=== PATIENT | female | born 1975 | race Two or more races ===

== ENCOUNTER 2016-06-22 21:29 | Inpatient (IN) | payer MEDICAID ==
[~2016-06-22] VITALS: Ht 157.5 cm; Wt 70.0 kg
[2016-06-22 22:05] LABS: Basophils # (auto) 0 uL; Basophils % (auto) 0.2 % (0.0-2.0); Eosinophils # (auto) 0 uL; Eosinophils % (auto) 0.4 % (0.0-7.0); Hematocrit 34.5 % (36.0-46.0); Lymphocytes # (auto) 0.7 uL; Lymphocytes % (auto) 8.2 % (10.0-50.0); Mean Corpuscular Hemoglobin 29.2 pg (28.0-32.0); Mean Corpuscular Hgb Conc. 34.8 g/dL (32.0-36.0); Mean Corpuscular Volume 83.9 fL (80.0-100.0); Mean Platelet Volume 8.3 fL (7.4-10.4); Monocytes # (auto) 0.1 uL; Monocytes % (auto) 0.6 % (0.0-12.0); Neutrophils # (auto) 7.4 uL; Neutrophils % (auto) 90.6 % (37.0-80.0); Platelet Count (auto) 297 10^3/uL (140-450); Red Cell Distribution Width 11.7 % (11.6-16.0); Urine Bilirubin Negative (Negative); Urine Blood TRACE /uL (Negative); Urine Color Yellow (Yellow); Urine Nitrite Negative (Negative); Urine RBC 5 /hpf (0 - 4); Urine Squamous Epithelial Cell FEW /hpf (<5); Urine Urobilinogen Normal (Negative); Urine pH 6.5 (5.0-8.0); White Blood Cell 8.2 10^3/uL (4.4-10.8)
[2016-06-22] MEDS ORDERED: ACETAMINOPHEN 500 MG TAB PO ONE ×2 (22:08→22:15)
[2016-06-22 22:15] LABS: Urine Glucose 4+ mg/dL (Normal); Urine Ketone 2+ (Negative)
[2016-06-22 22:21] LABS: Albumin 2.5 g/dL (3.4-5.0); Anion Gap 15 (5-15); Aspartate Aminotransferase 71 U/L (15-37); BUN/Creatinine Ratio 13.2; Blood Urea Nitrogen 9 mg/dL (7-18); Calcium 7.8 mg/dL (8.5-10.1); Carbon Dioxide 20 mmol/L (21-32); Chloride 97 mmol/L (98-107); GFR African American 123 mL/min; GFR Non-African American 102 mL/min; Glucose 323 mg/dL (74-106); Magnesium 1.7 mg/dL (1.6-2.6); Potassium 3.1 mmol/L (3.5-5.1); Sodium 132 mmol/L (136-145)
[2016-06-22 22:26] LABS: Alkaline Phosphatase 338 U/L (45-117); Bilirubin, Total 0.9 mg/dL (0.2-1.0); Total Protein 7.5 g/dL (6.4-8.2)
[2016-06-22 22:59] LABS: Partial Thromboplastin Time 29.4 sec (22.64-33.71)
[2016-06-22 23:00] LABS: Prothrombin Time 12.6 sec (9.37-12.3)
[2016-06-22] MEDS ORDERED: SODIUM CHLORIDE 0.9% 1,000 ML IV ONE (23:00)
[2016-06-22 23:01] LABS: INR 1.22 (0.9-1.15)
[2016-06-22] MEDS ORDERED: InsuLIN REG 1unit/0.01ml Soln (100units/ml) IV ONE (23:30)
[2016-06-22] MEDS ORDERED: VANCOMYCIN 1GM/250ML D5W 250 ML IV ONE (23:30)
[2016-06-22] MEDS ORDERED: cefTRIAXone 1GM/50ML D5W 50 ML IV ONE (23:30)
[2016-06-22] MEDS ORDERED: POTASSIUM CHL 20 Meq TABLET PO ONE (23:30)
[2016-06-22] MEDS ORDERED: IOHEXOL 300 MG/ML 100ML BOTTLE IJ ONE (23:42)
[2016-06-23] MEDS ORDERED: DEXTROSE (50%) 50ML SYRG IV PRN (06:15)
[2016-06-23] MEDS ORDERED: SODIUM CHLORIDE 0.9% 1,000 ML IV ONE (06:15)
[2016-06-23] MEDS ORDERED: MORPHINE SULF INJ 2 MG/ML SYRINGE 1ML IV PRN (06:15)
[2016-06-23] MEDS ORDERED: NITROGLYCERIN 0.4 MG SL TAB SL PRN (06:15)
[2016-06-23] MEDS ORDERED: ACETAMINOPHEN 500 MG TAB PO PRN (06:15)
[2016-06-23] MEDS: LEVOFLOXACIN 500MG 100 ML IV SCH ×2 (06:37→10:00)
[2016-06-23 08:22] VITALS: BP 118/67
[2016-06-23 09:00] VITALS: BP 118/67
[2016-06-23] MEDS ORDERED: cefTRIAXone 1GM/50ML D5W 50 ML IV SCH (09:00)
[2016-06-23] MEDS: MORPHINE SULF INJ 2 MG/ML SYRINGE 1ML IV PRN ×3 (11:13→23:51)
[2016-06-23] MEDS: PANTOPRAZOLE SODIUM 40 MG/10 ML VIAL IV SCH (11:14)
[2016-06-23] MEDS: ONDANSETRON HCL 4 MG/2 ML VIAL IV PRN ×2 (11:25→17:35)
[2016-06-23 13:00] VITALS: BP 125/74
[2016-06-23] MEDS: ACCU-CHEK COMFORT CURVE STRIP VI SCH ×2 (13:40→18:54)
[2016-06-23] MEDS: InsuLIN REG 1unit/0.01ml Soln (100units/ml) SC SCH ×2 (13:41→18:54)
[2016-06-23] MEDS: SOD CHL 0.9%/ KCL 20MEQ 1,000 ML IV SCH (14:47)
[2016-06-23 17:00] VITALS: BP 128/67
[2016-06-23 20:00] VITALS: BP 125/66
[2016-06-23 22:00] VITALS: BP 125/66
[2016-06-23] MEDS: INSULIN DETEMIR(LEVEMIR) 1unit/0.01ml Soln (100units/ml) SC SCH (22:00)
[2016-06-24] MEDS: ACCU-CHEK COMFORT CURVE STRIP VI SCH ×5 (00:27→23:51)
[2016-06-24] MEDS: InsuLIN REG 1unit/0.01ml Soln (100units/ml) SC SCH ×4 (00:28→18:16)
[2016-06-24] MEDS: SOD CHL 0.9%/ KCL 20MEQ 1,000 ML IV SCH ×3 (00:28→20:51)
[2016-06-24 05:24] VITALS: BP 115/62
[2016-06-24 06:19] LABS: Basophils # (auto) 0 uL; Basophils % (auto) 0.2 % (0.0-2.0); Eosinophils # (auto) 0 uL; Eosinophils % (auto) 0.4 % (0.0-7.0); Hematocrit 34.4 % (36.0-46.0); Hemoglobin 11.8 g/dL (12.2-16.2); Lymphocytes # (auto) 1.3 uL; Lymphocytes % (auto) 12.5 % (10.0-50.0); Mean Corpuscular Hemoglobin 29.2 pg (28.0-32.0); Mean Corpuscular Hgb Conc. 34.4 g/dL (32.0-36.0); Mean Corpuscular Volume 84.8 fL (80.0-100.0); Mean Platelet Volume 8.5 fL (7.4-10.4); Monocytes # (auto) 0.7 uL; Neutrophils % (auto) 79.9 % (37.0-80.0); Platelet Count (auto) 269 10^3/uL (140-450); Red Cell Distribution Width 11.9 % (11.6-16.0); White Blood Cell 10.1 10^3/uL (4.4-10.8)
[2016-06-24] MEDS: INSULIN DETEMIR(LEVEMIR) 1unit/0.01ml Soln (100units/ml) SC SCH (06:28)
[2016-06-24 06:34] LABS: Albumin 2.2 g/dL (3.4-5.0); BUN/Creatinine Ratio 9.3; Calcium 7.8 mg/dL (8.5-10.1); Potassium 3.7 mmol/L (3.5-5.1)
[2016-06-24 06:37] LABS: Bilirubin, Total 0.7 mg/dL (0.2-1.0); Total Protein 6.7 g/dL (6.4-8.2)
[2016-06-24 08:00] VITALS: BP 126/74
[2016-06-24] MEDS ORDERED: MIDAZOLAM HCL 1MG/1ML-2 ML VIAL ONE (08:35)
[2016-06-24] MEDS ORDERED: fentaNYL CITRATE 100 MCG/2 ML VL ONE (08:35)
[2016-06-24] MEDS ORDERED: LIDOCAINE 2%HCL (LOCAL ANESTH.) INJ 20ML MDV ONE (08:48)
[2016-06-24 09:00] VITALS: BP 126/74
[2016-06-24] MEDS: PIPERACILLIN-TAZOB 3.375GM 100 ML IV SCH ×3 (10:37→20:51)
[2016-06-24] MEDS: MORPHINE SULF INJ 2 MG/ML SYRINGE 1ML IV PRN ×2 (10:37→16:20)
[2016-06-24] MEDS: PANTOPRAZOLE SODIUM 40 MG/10 ML VIAL IV SCH (10:37)
[2016-06-24 13:00] VITALS: BP 127/71
[2016-06-24 17:00] VITALS: BP 148/76
[2016-06-24] MEDS: HYDROcodone-ACET 5/325MG TAB PO PRN (18:55)
[2016-06-24 22:00] VITALS: BP 138/74
[2016-06-25] MEDS: INSULIN DETEMIR(LEVEMIR) 1unit/0.01ml Soln (100units/ml) SC SCH ×3 (00:10→22:00)
[2016-06-25] MEDS: InsuLIN REG 1unit/0.01ml Soln (100units/ml) SC SCH ×4 (00:11→18:06)
[2016-06-25] MEDS: PIPERACILLIN-TAZOB 3.375GM 100 ML IV SCH ×4 (03:35→21:58)
[2016-06-25 05:00] VITALS: BP 137/80
[2016-06-25] MEDS: ACCU-CHEK COMFORT CURVE STRIP VI SCH ×3 (06:14→18:14)
[2016-06-25] MEDS: SOD CHL 0.9%/ KCL 20MEQ 1,000 ML IV SCH (06:33)
[2016-06-25 09:00] VITALS: BP 126/77
[2016-06-25] MEDS: PANTOPRAZOLE SODIUM 40 MG/10 ML VIAL IV SCH (10:13)
[2016-06-25] MEDS: HYDROcodone-ACET 5/325MG TAB PO PRN ×2 (10:13→14:34)
[2016-06-25] MEDS ORDERED: FAMOTIDINE 20 MG TAB PO ONE (11:00)
[2016-06-25] MEDS ORDERED: ENOXAPARIN SOD 40 MG/0.4 ML SYRINGE SC ONE (11:00)
[2016-06-25 17:00] VITALS: BP 107/68
[2016-06-25 21:00] VITALS: BP 128/76
[2016-06-26] MEDS: InsuLIN REG 1unit/0.01ml Soln (100units/ml) SC SCH ×4 (00:11→18:20)
[2016-06-26] MEDS: ACCU-CHEK COMFORT CURVE STRIP VI SCH ×4 (00:12→18:22)
[2016-06-26] MEDS: PIPERACILLIN-TAZOB 3.375GM 100 ML IV SCH ×4 (03:24→21:50)
[2016-06-26 06:26] LABS: Basophils # (auto) 0 uL; Basophils % (auto) 0.3 % (0.0-2.0); Eosinophils # (auto) 0.1 uL; Eosinophils % (auto) 2.3 % (0.0-7.0); Hematocrit 34.9 % (36.0-46.0); Lymphocytes # (auto) 1.9 uL; Lymphocytes % (auto) 30.3 % (10.0-50.0); Mean Corpuscular Hgb Conc. 34.3 g/dL (32.0-36.0); Mean Corpuscular Volume 84.6 fL (80.0-100.0); Mean Platelet Volume 8.3 fL (7.4-10.4); Monocytes # (auto) 0.5 uL; Monocytes % (auto) 8.6 % (0.0-12.0); Neutrophils # (auto) 3.7 uL; Neutrophils % (auto) 58.5 % (37.0-80.0); Platelet Count (auto) 350 10^3/uL (140-450); White Blood Cell 6.3 10^3/uL (4.4-10.8)
[2016-06-26 06:39] LABS: BUN/Creatinine Ratio 6.8; Calcium 8.3 mg/dL (8.5-10.1); Potassium 3.3 mmol/L (3.5-5.1)
[2016-06-26] MEDS: INSULIN DETEMIR(LEVEMIR) 1unit/0.01ml Soln (100units/ml) SC SCH (06:39)
[2016-06-26] MEDS: HYDROcodone-ACET 5/325MG TAB PO PRN (08:53)
[2016-06-26 09:49] VITALS: BP 123/78
[2016-06-26] MEDS: FAMOTIDINE 20 MG TAB PO SCH (10:37)
[2016-06-26] MEDS: ENOXAPARIN SOD 100 MG/1 ML SYRINGE SC SCH (10:37)
[2016-06-26 12:55] VITALS: BP 134/77
[2016-06-26] MEDS ORDERED: POTASSIUM CHL 20 Meq TABLET PO ONE (15:15)
[2016-06-26 16:48] VITALS: BP 134/72
[2016-06-26 20:27] VITALS: BP 138/75
[2016-06-27] MEDS: InsuLIN REG 1unit/0.01ml Soln (100units/ml) SC SCH ×4 (00:03→18:32)
[2016-06-27] MEDS: INSULIN DETEMIR(LEVEMIR) 1unit/0.01ml Soln (100units/ml) SC SCH ×3 (00:06→22:00)
[2016-06-27] MEDS: ACCU-CHEK COMFORT CURVE STRIP VI SCH ×4 (00:06→18:00)
[2016-06-27] MEDS: PIPERACILLIN-TAZOB 3.375GM 100 ML IV SCH (03:00)
[2016-06-27 05:29] VITALS: BP 115/72
[2016-06-27 08:28] VITALS: BP 127/76
[2016-06-27] MEDS: LEVOFLOXACIN 500MG 100 ML IV SCH (09:20)
[2016-06-27] MEDS: FAMOTIDINE 20 MG TAB PO SCH (10:33)
[2016-06-27] MEDS: ENOXAPARIN SOD 100 MG/1 ML SYRINGE SC SCH (10:34)
[2016-06-27] MEDS: SOD CHL 0.9%/ KCL 20MEQ 1,000 ML IV SCH (11:15)
[2016-06-27 12:03] VITALS: BP 125/71
[2016-06-27 22:00] VITALS: BP 147/82
[2016-06-28] MEDS: InsuLIN REG 1unit/0.01ml Soln (100units/ml) SC SCH ×4 (00:47→18:00)
[2016-06-28] MEDS: ACCU-CHEK COMFORT CURVE STRIP VI SCH ×4 (00:47→18:00)
[2016-06-28] MEDS: SOD CHL 0.9%/ KCL 20MEQ 1,000 ML IV SCH ×2 (00:47→07:15)
[2016-06-28 05:00] VITALS: BP 137/78
[2016-06-28] MEDS: INSULIN DETEMIR(LEVEMIR) 1unit/0.01ml Soln (100units/ml) SC SCH ×2 (06:50→22:29)
[2016-06-28 07:40] LABS: BUN/Creatinine Ratio 9.5; Calcium 8.3 mg/dL (8.5-10.1); Potassium 3.7 mmol/L (3.5-5.1)
[2016-06-28] MEDS ORDERED: IOHEXOL 300 MG/ML 100ML BOTTLE IJ ONE (08:12)
[2016-06-28 09:00] VITALS: BP 119/73
[2016-06-28] MEDS: LEVOFLOXACIN 500MG 100 ML IV SCH (10:42)
[2016-06-28] MEDS: ENOXAPARIN SOD 100 MG/1 ML SYRINGE SC SCH (10:43)
[2016-06-28] MEDS: FAMOTIDINE 20 MG TAB PO SCH (10:43)
[2016-06-28] MEDS ORDERED: SODIUM CHLORIDE 0.9% 1,000 ML IV ONE (12:30)
[2016-06-28 12:55] VITALS: BP 136/78
[2016-06-28 17:02] VITALS: BP 139/77
[2016-06-28 20:00] VITALS: BP 130/77
[2016-06-28 22:00] VITALS: BP 130/77
[2016-06-29 05:00] VITALS: BP 136/74
[2016-06-29] MEDS: ACCU-CHEK COMFORT CURVE STRIP VI SCH ×5 (06:00→23:12)
[2016-06-29] MEDS: InsuLIN REG 1unit/0.01ml Soln (100units/ml) SC SCH ×5 (06:00→23:11)
[2016-06-29] MEDS: INSULIN DETEMIR(LEVEMIR) 1unit/0.01ml Soln (100units/ml) SC SCH (07:00)
[2016-06-29 09:00] VITALS: BP 123/68
[2016-06-29] MEDS: ENOXAPARIN SOD 100 MG/1 ML SYRINGE SC SCH (09:57)
[2016-06-29] MEDS: FAMOTIDINE 20 MG TAB PO SCH (09:57)
[2016-06-29] MEDS: LEVOFLOXACIN 500MG 100 ML IV SCH (09:57)
[2016-06-29 12:05] VITALS: BP 141/73
[2016-06-29] MEDS ORDERED: LEVO-28 PO (12:40)
[2016-06-29] MEDS ORDERED: METF-312 PO (12:40)
[2016-06-29 17:11] VITALS: BP 104/57
[2016-06-29 21:48] VITALS: BP 122/72
[2016-06-29] MEDS ORDERED: INSULIN DETEMIR(LEVEMIR) 1unit/0.01ml Soln (100units/ml) SC SCH (22:00)
[2016-06-30 05:00] VITALS: BP 114/69
[2016-06-30] MEDS: ACCU-CHEK COMFORT CURVE STRIP VI SCH ×2 (06:07→12:11)
[2016-06-30] MEDS: InsuLIN REG 1unit/0.01ml Soln (100units/ml) SC SCH ×2 (06:09→12:11)
[2016-06-30 08:00] VITALS: BP 116/68
[2016-06-30] MEDS: LEVOFLOXACIN 500MG 100 ML IV SCH (10:09)
[2016-06-30] MEDS: ENOXAPARIN SOD 100 MG/1 ML SYRINGE SC SCH (10:09)
[2016-06-30] MEDS: FAMOTIDINE 20 MG TAB PO SCH (10:09)
[2016-06-30 12:00] VITALS: BP 133/78
== END 2016-06-30 16:16 | disposition home or self-care (01) | DRG 720 ==
LOC: ER 21:32 → OVERFLOW 21:33 → EAST 06-23 08:20
PROVIDERS: ADMIT Family Medicine; ATTEND Internal Medicine
PROC: 0T913ZX Drainage of Left Kidney, Percutaneous Approach, Diagnostic (ICD-10-PCS; principal; 2016-06-24)
PROC: 0F9230Z Drainage of Left Lobe Liver with Drainage Device, Percutaneous Approach (ICD-10-PCS; 2016-06-24)
DX: A41.9 Sepsis, unspecified organism (principal); E43 Unspecified severe protein-calorie malnutrition; N15.1 Renal and perinephric abscess; J90 Pleural effusion, not elsewhere classified; E11.21 Type 2 diabetes mellitus with diabetic nephropathy; N39.0 Urinary tract infection, site not specified; R16.1 Splenomegaly, not elsewhere classified; J98.11 Atelectasis; E11.65 Type 2 diabetes mellitus with hyperglycemia; N10 Acute pyelonephritis; B96.1 Klebsiella pneumoniae [K. pneumoniae] as the cause of diseases classified elsewhere; E87.6 Hypokalemia; Z79.4 Long term (current) use of insulin; Z68.28 Body mass index [BMI] 28.0-28.9, adult; Z82.3 Family history of stroke
CPT/HCPCS: 36415; 71010; 74150; 74176; 74177; 75989; 80048; 80053; 81001; 82962; 83036; 83605; 83690; 83735; 84484; 84702; 85025; 85610; 85730; 87040; 87070; 87077; 87086; 87088; 87186; 87205; 93005; 96365; 96366; 96367; 96375; C1729; C9113; J0696; J1815; J1956; J2250; J2405; J2543

== ENCOUNTER 2019-12-29 10:01 | Emergency (ER) | payer SELFPAY ==
[~2019-12-29] VITALS: Ht 157.5 cm; Wt 86.2 kg
[~2019-12-29 10:01] MED LIST: LEVO-28 PO; METF-370 PO
[2019-12-29] MEDS ORDERED: cloNIDine HCL 0.1 MG TAB PO ONE (10:30)
[2019-12-29] MEDS ORDERED: LABETALOL HCL 5 MG/ML 4ML SYRINGE IV ONE (11:15)
[2019-12-29 11:51] LABS: Alanine Aminotransferase 26 U/L (13-56); Albumin 3.1 g/dL (3.4-5.0); Anion Gap 6 (5-15); Blood Urea Nitrogen 11 mg/dL (7-18); Calcium 8.2 mg/dL (8.5-10.1); Carbon Dioxide 23 mmol/L (21-32); Chloride 106 mmol/L (98-107); Glucose 230 mg/dL (74-106); Magnesium 2.2 mg/dL (1.6-2.6); Sodium 135 mmol/L (136-145)
[2019-12-29 11:53] LABS: Basophils # (auto) 0 10 ^3/uL (0-0.2); Basophils % (auto) 0.7 % (0.0-2.0); Eosinophils # (auto) 0 10 ^3/uL (0-0.8); Eosinophils % (auto) 0.6 % (0.0-7.0); Hematocrit 39.8 % (36.0-46.0); Hemoglobin 13.9 g/dL (12.2-16.2); Lymphocytes # (auto) 2.3 10 ^3/uL (0.4-5.4); Lymphocytes % (auto) 33.6 % (10.0-50.0); Mean Corpuscular Hemoglobin 30.9 pg (28.0-32.0); Mean Corpuscular Hgb Conc. 34.9 g/dL (32.0-36.0); Mean Corpuscular Volume 88.7 fL (80.0-100.0); Monocytes # (auto) 0.4 10 ^3/uL (0-1.3); Neutrophils % (auto) 59.1 % (37.0-80.0); Nucleated Red Blood Cells % 0.1 %; Platelet Count (auto) 239 10^3/uL (140-450); Red Blood Cells 4.48 10^6/uL (4.0-5.20); Red Cell Distribution Width 12.5 % (11.8-14.3); White Blood Cell 6.7 10^3/uL (4.4-10.8)
[2019-12-29 11:56] LABS: Alkaline Phosphatase 99 U/L (45-117); Aspartate Aminotransferase 18 U/L (15-37); Bilirubin, Total 0.4 mg/dL (0.2-1.0); GFR African American 146 mL/min; GFR Non-African American 121 mL/min; Total Protein 7.1 g/dL (6.4-8.2)
[2019-12-29 13:44] LABS: Urine Bacteria FEW /hpf (None Seen); Urine Blood TRACE /uL (Negative); Urine Mucus FEW (None Seen); Urine Specific Gravity 1.028 (1.001-1.035); Urine WBC 17 /hpf (0 - 5)
[2019-12-29 16:20] VITALS: BP 142/86
== END 2019-12-29 16:20 | disposition home or self-care (01) ==
LOC: ER 10:01
DX: I10 Essential (primary) hypertension (principal); E46 Unspecified protein-calorie malnutrition; E11.9 Type 2 diabetes mellitus without complications; Z79.84 Long term (current) use of oral hypoglycemic drugs
CPT/HCPCS: 36415; 70450; 71046; 80053; 81001; 83735; 84484; 84702; 85025; 93005; 96374; 99285; J3490

== ENCOUNTER 2023-08-16 10:04 | Inpatient (IN) | payer MEDICAID ==
[~2023-08-16] VITALS: Ht 152.4 cm; Wt 78.3 kg
[~2023-08-16 10:04] MED LIST changes: -LEVO-28 PO; +LEVO500T91 PO
[2023-08-16 10:48] LABS: Basophils # (auto) 0 10 ^3/uL (0-0.2); Basophils % (auto) 0.5 % (0.0-2.0); Eosinophils # (auto) 0.1 10 ^3/uL (0-0.8); Eosinophils % (auto) 1.3 % (0.0-7.0); Hematocrit 40.3 % (36.0-46.0); Hemoglobin 14.1 g/dL (12.2-16.2); Lymphocytes % (auto) 24.8 % (10.0-50.0); Mean Corpuscular Hgb Conc. 34.9 g/dL (32.0-36.0); Monocytes # (auto) 0.5 10 ^3/uL (0-1.3); Monocytes % (auto) 5.7 % (0.0-12.0); Neutrophils # (auto) 5.4 10 ^3/uL (1.6-8.6); Neutrophils % (auto) 67.7 % (37.0-80.0); Red Blood Cells 4.69 10^6/uL (4.0-5.20); Red Cell Distribution Width 12.9 % (11.8-14.3)
[2023-08-16] MEDS: cloNIDine HCL 0.1 MG TAB PO ONE (11:04)
[2023-08-16 11:08] LABS: Alkaline Phosphatase 114 U/L (46-116); Anion Gap 5 (5-15); Aspartate Aminotransferase 12 U/L (13-40); BUN/Creatinine Ratio 9.9 (10.0-20.0); Bilirubin, Total 0.5 mg/dL (0.2-1.0); Blood Urea Nitrogen 11 mg/dL (9-23); Carbon Dioxide 24 mmol/L (20-30); Chloride 101 mmol/L (98-107); Potassium 3.9 mmol/L (3.5-5.1); Sodium 130 mmol/L (136-145); Total Protein 7.2 g/dL (5.7-8.2)
[2023-08-16] MEDS: ONDANSETRON HCL 4 MG/2 ML VIAL IV ONE (11:26)
[2023-08-16] MEDS: MORPHINE SULFATE 4 MG/ML SYR/VIAL IV ONE (11:27)
[2023-08-16 11:56] LABS: Alanine Aminotransferase < 9 U/L (7-40)
[2023-08-16 11:58] LABS: Glucose 450 mg/dL (74-106)
[2023-08-16] MEDS: hydrALAZINE HCL 20 MG/ML VL IV ONE (13:01)
[2023-08-16] MEDS: SODIUM CHLORIDE 0.9% 1,000 ML IV ONE (13:01)
[2023-08-16] MEDS ORDERED: ONDANSETRON HCL 4 MG/2 ML VIAL IV PRN (17:15)
[2023-08-16] MEDS ORDERED: MORPHINE SULFATE INJ 2 MG/ml SYRG IV PRN (17:15)
[2023-08-16] MEDS ORDERED: DEXTROSE (50%) 50ML SYRG IV PRN (17:15)
[2023-08-16] MEDS ORDERED: hydrALAZINE HCL 20 MG/ML VL IV PRN (17:15)
[2023-08-16] MEDS ORDERED: DOCUSATE SOD 100 MG CAP PO PRN (17:15)
[2023-08-16] MEDS: SODIUM CHLORIDE 0.9% 1,000 ML IV SCH (17:25)
[2023-08-16] MEDS: ACCU-CHEK COMFORT CURVE STRIP VI SCH (22:57)
[2023-08-16] MEDS: InsuLIN REG 1unit/0.01ml Soln (100units/ml) SC SCH (23:04)
[2023-08-17 04:05] LABS: Basophils # (auto) 0.1 10 ^3/uL (0-0.2); Basophils % (auto) 0.7 % (0.0-2.0); Eosinophils # (auto) 0.1 10 ^3/uL (0-0.8); Eosinophils % (auto) 1.4 % (0.0-7.0); Hematocrit 38.8 % (36.0-46.0); Hemoglobin 13.4 g/dL (12.2-16.2); Lymphocytes # (auto) 2.2 10 ^3/uL (0.4-5.4); Lymphocytes % (auto) 25.9 % (10.0-50.0); Mean Corpuscular Hemoglobin 29.9 pg (28.0-32.0); Mean Corpuscular Hgb Conc. 34.5 g/dL (32.0-36.0); Mean Corpuscular Volume 86.7 fL (80.0-100.0); Monocytes # (auto) 0.5 10 ^3/uL (0-1.3); Monocytes % (auto) 5.5 % (0.0-12.0); Neutrophils # (auto) 5.7 10 ^3/uL (1.6-8.6); Neutrophils % (auto) 66.5 % (37.0-80.0); Red Blood Cells 4.48 10^6/uL (4.0-5.20); Red Cell Distribution Width 13.2 % (11.8-14.3); White Blood Cell 8.5 10^3/uL (4.4-10.8)
[2023-08-17 04:23] LABS: Alanine Aminotransferase 13 U/L (7-40); Albumin 3.5 g/dL (3.2-4.8); Alkaline Phosphatase 82 U/L (46-116); Anion Gap 8 (5-15); Aspartate Aminotransferase 13 U/L (13-40); BUN/Creatinine Ratio 16.2 (10.0-20.0); Blood Urea Nitrogen 19 mg/dL (9-23); Calcium 8.5 mg/dL (8.7-10.4); Carbon Dioxide 20 mmol/L (20-30); Chloride 107 mmol/L (98-107); Glucose 249 mg/dL (74-106); Potassium 3.9 mmol/L (3.5-5.1)
[2023-08-17 04:24] LABS: Bilirubin, Total 0.4 mg/dL (0.2-1.0)
[2023-08-17 04:35] LABS: Sodium 135 mmol/L (136-145)
[2023-08-17 04:40] VITALS: PULSE 89; RESP 16; O2SAT 98
[2023-08-17] MEDS: InsuLIN REG 1unit/0.01ml Soln (100units/ml) SC SCH (06:33)
[2023-08-17 07:36] VITALS: BP 152/77; TEMP 98.3
[2023-08-17 07:39] VITALS: PULSE 95; RESP 16; O2SAT 98
== END 2023-08-17 11:04 | disposition left against medical advice (07) | DRG 420 ==
LOC: ER 10:04 → OVERFLOW 17:08
PROVIDERS: ADMIT Nurse Practitioner Family; ATTEND Internal Medicine Pulmonary Disease
DX: E11.65 Type 2 diabetes mellitus with hyperglycemia (principal); N17.9 Acute kidney failure, unspecified; Z53.29 Procedure and treatment not carried out because of patient's decision for other reasons; E87.1 Hypo-osmolality and hyponatremia; I10 Essential (primary) hypertension; H54.62 Unqualified visual loss, left eye, normal vision right eye
CPT/HCPCS: 36415; 70450; 71045; 80053; 82010; 82962; 83036; 84484; 85025; 93005; 96361; 96374; 96375; G0378; J1815; J2405

== ENCOUNTER 2025-02-24 10:12 | Inpatient (IN) | payer MEDICAID ==
[~2025-02-24] VITALS: Ht 154.9 cm; Wt 74.1 kg
--- NOTE | 2025-02-24 10:24 | ED.PDOC ---
History of Present Illness HPI Comments 49-year-old female who presents to the ED with a chief complaint of facial swelling onset 3 days. Patient states she began experiencing right-sided facial swelling 3 days ago, woke up this morning and realized swelling had worsened, has right-sided facial drooping. She has also been experiencing decreased h earing from bilateral ears. For the past 6 months, has been experiencing wound to LT heel, was seen by PCP and advised to come to ED. Denies fall, head injury, nausea, vomiting, diarrhea, chest pain, shortness of breath, dizziness, blurred vision, dysuria, fever, chills. No other symptoms or modifying factors present at this time. Chief Complaint: Face pain Time Seen by MD: 10:20 Primary Care Provider: MOJGAN Allergies: Coded Allergies: NO KNOWN ALLERGIES (Unverified , 06/22/16) Home Meds Active Scripts Metformin Hydrochloride (Metformin Hcl) 500 Mg Tab, 1 TAB PO BID, #60 TAB 0 Refills Prov:RACHAEL ADAMS MD 06/29/16 Levofloxacin Hemihydrate (LEVOFLOXACIN) 500 Mg Tab, 1 TAB PO DAILY, #7 TAB Prov:RACHAEL ADAMS MD 06/29/16 Past Medical History PAST MEDICAL HISTORY: DM, HTN Surgical History: Denies all surgeries GRANT MANAGER History: No Pertinent GRANT MANAGER History Family History Family History: Unobtainable Social History Smoker: Non-Smoker Alcohol: Denies ETOH Use Drugs: Denies Drug Use Lives In: Home Physical Exam General Appearance: Normal HEENT: Other (RT facial swelling) Neck: Full Range of Motion, Non-Tender, Normal, Normal Inspection Respiratory: Chest Non-Tender, Lungs Clear, No Accessory Muscle Use, No Respiratory Distress, Normal Breath Sounds Cardiovascular: No Edema, No JVD, No Murmur, No Gallop, Normal Peripheral Pulses, Regular Rate/Rhythm Breast Exam: Deferred Gastrointestinal: No Organomegaly, Non Tender, No Pulsatile Mass, Normal Bowel Sounds, Soft Genitalia: Deferred Pelvic: Deferred Rectal: Deferred Extremities: No calf tenderness, Normal capillary refill, Normal inspection, Normal range of motion, Non-tender, No pedal edema Musculoskeletal : Apperance: Normal Neurologic: Other Cerebellar Function: Normal Reflexes: Normal Skin: Dry, Wounds (LT foot) Lymphatic: No Adenopathy Was a procedure done? Was a procedure done?: No Differential Dx Considerations may include: ACS, CVA, viral syndrome, electrolyte abnormality, hypertensive urgency X-Ray, Labs, Meds, VS Vital Signs Date Time Temp Pulse Resp B/P (MAP) Pulse Ox O2 Delivery O2 Flow Rate FiO2 02/24/25 15:30 98.5 102 15 172/73 (106) 97 98.5 02/24/25 14:56 195/65 02/24/25 10:19 98.3 110 16 232/115 100 98.3 02/24/25 10:18 109 Lab Test 02/24/25 13:58 02/24/25 11:45 02/24/25 11:01 Range/Units Troponin I High Sensitivity 7 5 6 </=34 ng/L White Blood Count 8.8 4.4-10.8 10^3/uL Red Blood Count 4.47 4.0-5.20 10^6/uL Hemoglobin 13.3 12.2-16.2 g/dL Hematocrit 38.3 36.0-46.0 % Mean Corpuscular Volume 85.7 80.0-100.0 fL Mean Corpuscular Hemoglobin 29.9 28.0-32.0 pg Mean Corpuscular Hemoglobin Concent 34.8 32.0-36.0 g/dL Red Cell Distribution Width 12.5 11.8-14.3 % Platelet Count 373 140-450 10^3/uL Mean Platelet Volume 8.5 6.9-10.8 fL Neutrophils (%) (Auto) 76.5 37.0-80.0 % Lymphocytes (%) (Auto) 17.5 10.0-50.0 % Monocytes (%) (Auto) 4.9 0.0-12.0 % Eosinophils (%) (Auto) 0.6 0.0-7.0 % Basophils (%) (Auto) 0.5 0.0-2.0 % Neutrophils # (Auto) 6.7 1.6-8.6 10 ^3/uL Lymphocytes # (Auto) 1.5 0.4-5.4 10 ^3/uL Monocytes # (Auto) 0.4 0-1.3 10 ^3/uL Eosinophils # (Auto) 0.1 0-0.8 10 ^3/uL Basophils # (Auto) 0 0-0.2 10 ^3/uL Nucleated Red Blood Cells 0.0 % Sodium Level 135 L 136-145 mmol/L Potassium Level 3.9 3.5-5.1 mmol/L Chloride Level 104 98-107 mmol/L Carbon Dioxide Level 22 20-31 mmol/L Anion Gap 9 5-15 Blood Urea Nitrogen 21 9-23 mg/dL Creatinine 1.71 H 0.550-1.02 mg/dL Glomerular Filtration Rate Calc 37 >90 mL/min BUN/Creatinine Ratio 12.3 10.0-20.0 Serum Glucose 278 H 74-106 mg/dL Calcium Level 8.6 L 8.7-10.4 mg/dL Current Medications Medications (Trade) Dose Ordered Sig/Juan Route Start Time Stop Time Status Last Admin Hydralazine HCl (Apresoline Tablet) 20 mg ONCE ONCE PO 02/24/25 14:15 02/24/25 14:16 DC 02/24/25 14:56 [place] [id number] Ph: [phone] DIAGNOSTIC IMAGING Diagnostic Imaging Report : [id number] Signed PATIENT: ISAIAH AMBRIZCT: [id number] UNIT: [id number] : 1975 LOC: ER ROOM / BED: / AGE / SEX: 49 / F ADM STATUS: REG ER SERVICE 1039 ORDERING PHYSICIAN: SARINA HAYES MD PROCEDURE(s): CXRP - CHEST PORTABLE REASON: weakness ORDER NUMBER(s): [id number], ACCESSION NUMBER(s): [id number] CHEST RADIOGRAPH Indication: weakness Technique: Single frontal view of the chest was obtained Comparison: XY CHEST XRAY 1 VIEW on DOS: 08/16/23 FINDINGS: Lines and Tubes: None Lungs: No focal consolidation. Pleura: No effusion. No pneumothorax. Cardiomediastinal contours: Unremarkable Bones: No acute osseous abnormality. IMPRESSION: 1. No acute cardiopulmonary disease. ATED BY: BESSIE COLON Jr., DO DICTATED DATE/TIME: 02/24/251112 SIGNED BY: BESSIE COLON Jr., DO SIGNED DATE/TIME: 02/24/251112 CC: Time of 1ST Reevaluation: 10:50 Reevaluation 1ST: Unchanged Patient Education/Counseling: Diagnosis, Treatment, Need For Follow Up Family Education/Counseling: Diagnosis, Treatment, Need For Follow Up SEPSIS Sepsis Screen Physician Orders Electrocardigram (02/24/25 10:39) Urinalysis (02/24/25 10:39) Chest Portable (02/24/25 10:39) Head Without Contrast (02/24/25 14:23) Vital Signs Date Time Temp Pulse Resp B/P (MAP) Pulse Ox O2 Delivery O2 Flow Rate FiO2 02/24/25 15:30 98.5 102 15 172/73 (106) 97 98.5 02/24/25 14:56 195/65 02/24/25 10:19 98.3 110 16 232/115 100 98.3 02/24/25 10:18 109 Laboratory Tests Test 02/24/25 11:01 White Blood Count 8.8 10^3/uL (4.4-10.8) Medications Medications Dose Ordered Sig/Juan Route Start Time Stop Time Status Last Admin Dose Admin Hydralazine HCl 20 mg ONCE ONCE PO 02/24/25 14:15 02/24/25 14:16 DC 02/24/25 14:56 Departure 1 Departure Time of Disposition: 16:17 (Patient presented with hypertension and symptoms concerning for hypertensive emergency. Patient is receiving iv blood pressure medications requiring intensive monitoring. Data: 1. I ordered and reviewed the result of at least 3 labs including a CBC, BMP, and Urinalysis. 2. I independently interpreted the following tests: CT Brain: Which appears benign. EKG which is Normal Sinus RhythmRisk:This patient has a high risk of morbidity due to further diagnostic testing or treatment and may suffer from an acute cardiac disorder. Workup reveals hypertensive emergency and patient should be admitted for further workup. and possible expert consultation. ) Impression: Primary Impression: Hypertensive urgency Additional Impression: Right sided facial pain Disposition: ADMITTED INPATIENT Admit to: Tele Condition: Guarded Discharged With: Self Critical Care Note Critical Care Time?: Yes Critical care comment: Hypertensive urgency Authorized and Performed by: Sarina Hayes MD Total critical care time: Approximately 39 minutes Due to a high probability of clinically significant, life threatening deterioration, the patient required my highest level of preparedness to intervene emergently and I personally spent this critical care time directly and personally managing the patient. This critical care time included obtaining a history; examining the patient; pulse oximetry; ordering and review of studies; arranging urgent treatment with development of a management plan; evaluation of patient's response to treatment; frequent reassessment; and, discussions with other providers. This critical care time was performed to assess and manage the high probability of imminent, life-threatening deterioration that could result in multi-organ failure. It was exclusive of separately billable procedures and treating other patients and teaching time. Please see my other sections and the rest of the note for further information on patient assessment and treatment. Stability Stability form required: No Heart Score Heart Score: Heart Score Response (Comments) Value History N/A 0 EKG N/A 0 Age N/A 0 Risk Factors N/A 0 Troponin N/A 0 Total 0 I personally scribed for SARINA HAYES MD ([email or web address]) on 02/24/25 at 10:24. Electronically submitted by Lashawn Patel ([email or web address]). I personally scribed for SARINA HAYES MD ([email or web address]) on 02/24/25 at 11:31. Electronically submitted by Lashawn Patel ([email or web address]). SARINA HAYES MD Feb 24, 2025 10:24
--- NOTE | 2025-02-24 10:40 | ECG ---
[facility] Test Date: 2025-02-24 Test Time: 10:18:15 Pat Name: FABBY AMBRIZ Department: Room: Gender: F Patient Care Coordinator: ESPERANZA : 1975 Requested By: SARINA HAYES Order Number: [id number] Reading MD: Kike Delvalle Measurements Intervals [place] Rate: 109 P: 64 MO: 128 QRS: 88 QRSD: 93 T: 21 QT: 345 QTc: 465 Interpretive Statements Sinus tachycardia Borderline ST depression, diffuse leads Baseline wander in lead(s) II,III,aVR,aVF,V3,V4,V5,V6 Electronically Signed On 02-24-2025 11:02:26 PST by Kike Delvalle Please click the below link to view image of tracing.
--- NOTE | 2025-02-24 11:15 | DVH ---
CHEST RADIOGRAPH Indication: weakness Technique: Single frontal view of the chest was obtained Comparison: XY CHEST XRAY 1 VIEW on DOS: 08/16/23 FINDINGS: Lines and Tubes: None Lungs: No focal consolidation. Pleura: No effusion. No pneumothorax. Cardiomediastinal contours: Unremarkable Bones: No acute osseous abnormality. IMPRESSION: 1. No acute cardiopulmonary disease.
[2025-02-24 11:34] LABS: Hematocrit 38.3 % (36.0-46.0); Hemoglobin 13.3 g/dL (12.2-16.2); Mean Corpuscular Hemoglobin 29.9 pg (28.0-32.0); Mean Corpuscular Volume 85.7 fL (80.0-100.0); Nucleated Red Blood Cells % 0.0 %
[2025-02-24 11:40] LABS: Chloride 104 mmol/L (98-107); Potassium 3.9 mmol/L (3.5-5.1)
[2025-02-24 11:41] LABS: Anion Gap 9 (5-15); Carbon Dioxide 22 mmol/L (20-31)
[2025-02-24 11:47] LABS: BUN/Creatinine Ratio 12.3 (10.0-20.0); Blood Urea Nitrogen 21 mg/dL (9-23); Calcium 8.6 mg/dL (8.7-10.4); Glucose 278 mg/dL (74-106); Sodium 135 mmol/L (136-145)
--- NOTE | 2025-02-24 16:10 | DVH ---
CLINICAL HISTORY: facial pain, weakness TECHNIQUE: Helical scanning was performed of the head from the skull base to the vertex. Multiplanar reconstructions were performed. This exam was performed according to our departmental dose optimization program. Up-to-date CT equipment and radiation dose reduction techniques are utilized as appropriate. CTDI 54 DLP 966 COMPARISON: CT HEAD WITHOUT CONTRAST on DOS: 08/16/23, HEAD WITHOUT CONTRAST on DOS: 12/29/19 FINDINGS: There is no evidence for acute intracranial hemorrhage, acute ischemic changes, mass, mass effect, or extra-axial fluid collection. There is no hydrocephalus or midline shift. There is no effacement of the cerebral sulci and basal subarachnoid cisterns. The guerrero-white matter differentiation is well maintained. The imaged paranasal sinuses are clear. 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 ( IMPRESSION: NO ACUTE INTRACRANIAL ABNORMALITY SEEN.
[2025-02-24] MEDS ORDERED: DEXTROSE (50%) 50ML SYRG IV PRN (20:45)
[2025-02-24] MEDS ORDERED: VANCOMYCIN PER PHARMACY 0 MG IV SCH (20:45)
[2025-02-24] MEDS ORDERED: ONDANSETRON HCL 4 MG/2 ML VIAL IV PRN (20:45)
--- NOTE | 2025-02-24 21:48 | DVH ---
CLINICAL HISTORY: rule out osteomyelitis TECHNIQUE: CT of the left foot was performed without intravenous contrast. This exam was performed according to our departmental dose optimization program. Up-to-date CT equipment and radiation dose reduction techniques are utilized as appropriate. CTDI 8 mGy DLP 278 mGy.cm COMPARISON: None FINDINGS: There is diffuse soft tissue swelling. No definite discrete fluid collection is seen. No acute fracture or dislocation is evident. There are no cortical erosions or periosteal reaction. There are no significant degenerative changes IMPRESSION: Diffuse soft tissue swelling. No CT evidence for acute osteomyelitis.
[2025-02-24 21:53] LABS: Albumin 3.6 g/dL (3.2-4.8); Bilirubin, Total 0.4 mg/dL (0.2-1.0); Magnesium 2.1 mg/dL (1.6-2.6); Total Protein 7.0 g/dL (5.7-8.2)
[2025-02-24 21:55] LABS: Alanine Aminotransferase < 9 U/L (7-40); Alkaline Phosphatase 125 U/L (46-116); Bilirubin, Direct < 0.1 mg/dL (<0.3)
[2025-02-24] MEDS: ACCU-CHEK COMFORT CURVE STRIP VI SCH (22:00)
[2025-02-24] MEDS: diphenhydrAMINE HCL 50 MG/1 ML VL IV ONE (22:04)
[2025-02-24] MEDS: ENOXAPARIN SOD 40 MG/0.4 ML SYRINGE SC SCH (22:05)
--- NOTE | 2025-02-24 22:05 | DVH ---
ULTRASOUND ABDOMEN, LIMITED RIGHT UPPER QUADRANT: REASON FOR EXAM: Right upper quadrant pain TECHNIQUE: Real-time sector scans in the transverse and longitudinal planes were obtained through the right upper quadrant of the abdomen. FINDINGS: The liver is of normal size and contour. There is hepatopetal flow in the portal vein. There is no intrahepatic biliary ductal dilatation. The common bile duct measures 3 mm. No gallstones or sludge are identified. The gallbladder is not significantly distended. There is no gallbladder wall thickening nor pericholecystic fluid. There is no sonographic Ambriz's sign. The visualized portion of the pancreas is unremarkable. The pancreas is largely obscured by bowel gas. The right kidney measures 7.8 cm. No hydronephrosis or nephrolithiasis is identified. There is no evidence of right renal mass or cyst. The visualized portions of the abdominal aorta demonstrate no evidence of aneurysmal dilatation. The visualized inferior vena cava is unremarkable. There is no free fluid identified in the right upper quadrant. IMPRESSION: No gallstones identified. No sonographic ambriz's sign.
[2025-02-24 22:07] VITALS: RESP 18
[2025-02-24] MEDS: LABETALOL HCL 20 MG/4 ML VL IV PRN (22:50)
[2025-02-24] MEDS: VANCOMYCIN 1.5GM/250ML 250 ML IV ONE (22:50)
[2025-02-24] MEDS: HYDROcodone-ACET 5/325MG TAB PO PRN (22:51)
[2025-02-24] MEDS: InsuLIN REG 1unit/0.01ml Soln (100units/ml) SC SCH (23:08)
--- NOTE | 2025-02-24 23:49 | DVHHPRES ---
History of Present Illness Resident Creating Document: LUKE COHEN RESIDENT History of Present Illness 49-year-old female with a past medical history of hypertension and type 2 diabetes mellitus, has come with the chief complaints of swelling of the lower portion of her face. Patient reports that it has been 4 days that her area above the lips and bilateral cheeks began to swell, R>L side which began after she cleaned her Fridge with vinegar. She also reports slight difficulty in swallowing which has been present for the last 1 month. She met her PCP today who suggested to visit the emergency room, believing the wound on her left heel (which has been present for 5 months now but started draining some yellow- colored fluid for the past 3 days) could be connected to her chief complaints. Patient denies any tingling sensation on her face, no dental ache, pharyngeal pain, Ear pain, fever, chills, nausea, vomiting. she has not recently been exposed to any sick contacts and has not traveled anywhere. on arrival to the hospital her blood pressure was 232/115 mmHg for which hydralazine 20 mg p.o. once was given. Her blood pressure now is 152/73 mmHg on admission, pulse 105, temp 98.5, RR 15, SpO2 98% on room air. Tropes are negative, chest x-ray is normal, CT head is normal, she has HENRI, creatinine 1.71 and serum glucose is 278. We are admitting the patient for further workup and management PMH: Hypertension, type 2 diabetes PSH: Right eye glaucoma surgery Social history: Patient denies ever smoking, drinking alcohol or abusing illicit drugs Family history: Reviewed, noncontributory to the management of this case PCP: Dr. Holden Allergies: None Code status: Full code Review of Systems Constitutional: Yes: Other (Lower facial swelling, more on the right cheek); No: Fever, Chills, Sweats, Weakness, Malaise Eyes: No: Pain, Vision change, Conjunctivae inflammation, Eyelid inflammation, Other, Redness ENT: No: Ear pain, Ear discharge, Nose pain, Nose discharge, Nose congestion, Mouth pain, Mouth swelling, Throat pain, Throat swelling, Other Respiratory: No: Cough, Dry, Shortness of breath, SOB with excertion, Wheezing, Hemoptysis, Pleuritic Pain, Sputum, Wheezing, Other Cardiovascular: No: Chest Pain, Palpitations, Orthopnea, Paroxysmal Noc. Dyspnea, Edema, Lt Headedness, Other Gastrointestinal: No: Nausea, Vomiting, Abdominal Pain, Diarrhea, Constipation, Melena, Hematochezia, Other Genitourinary: No Dysuria, No Frequency, No Incontinence, No Hematuria, No Retention, No Other Musculoskeletal: No: other, neck pain, shoulder pain, arm pain, back pain, hand pain, leg pain, foot pain Skin: Other (Draining wound on the left heel) Neurological: No: Weakness, Numbness, Incoordination, Change in speech, Confusion, Seizures, Other Allergies: Coded Allergies: NO KNOWN ALLERGIES (Unverified , 06/22/16) Medications Current Medications Medications Dose Ordered Sig/Juan Route Start Time Stop Time Status Last Admin Dose Admin Acetaminophen/ Hydrocodone Bitart 1 tab Q4HP PRN PO 02/24/25 20:45 02/24/25 22:51 1 TAB Ondansetron HCl 4 mg Q4HP PRN IV 02/24/25 20:45 Acetaminophen 650 mg Q6HP PRN PO 02/24/25 20:45 Enoxaparin Sodium 40 mg DAILY SC 02/24/25 20:45 02/24/25 22:05 40 MG Diagnostic Test (Pha) 1 strip ACHS 02/24/25 22:00 02/24/25 22:00 1 STRIP Insulin Human Regular ACHS SC 02/24/25 22:00 02/24/25 23:08 8 UNITS Dextrose 50 ml UD PRN IV 02/24/25 20:45 Loratadine 10 mg DAILY PO 02/25/25 10:00 Vancomycin HCl 0 ml @ 0 mls/hr PER PHARMACY IV 02/24/25 20:45 Labetalol HCl 10 mg Q4HPRN PRN IV 02/24/25 20:45 02/24/25 22:50 10 MG Nifedipine 30 mg DAILY PO 02/25/25 10:00 Exam Vital Signs Vital Signs Date Time Temp Pulse Resp B/P (MAP) Pulse Ox O2 Delivery O2 Flow Rate FiO2 02/24/25 22:50 102 187/77 02/24/25 22:07 18 Room Air* 0 21 02/24/25 22:01 98.7 97 98.7 Exam General Appearance: Alert, Oriented X3, Cooperative, patient has resting tremors, goes away when distracted HEENT: Atraumatic, Mucous membranes moist/pink, facial swelling, more pronounced above the lips and on the right cheek, warm, slight erythema Respiratory: Clear to auscultation, Normal air movement, No added sounds Cardiovascular: Regular rate, Normal S1, Normal S2, No murmurs Abdominal: Active bowel sounds, Soft, no distention, mild tenderness in right upper quadrant Extremities: No edema, Normal pulses, No tenderness/swelling, presence of stage II ulcer in left heel, slightly draining Skin: No Significant rash, except past surgical scars Neuro: Normal speech, no sensorimotor deficits, power 5/5 on all extremities Psych/Mental Status: Mental status NL, Mood NL Nurse was there as cook camp during examination Labs/Xrays Labs Test 02/24/25 21:20 02/24/25 13:58 02/24/25 11:45 02/24/25 11:01 Range/Units Erythrocyte Sedimentation Rate 98 H 0-20 mm/hr Magnesium Level 2.1 1.6-2.6 mg/dL Total Bilirubin 0.4 0.2-1.0 mg/dL Direct Bilirubin < 0.1 <0.3 mg/dL Aspartate Amino Transferase (AST) 16 13-40 U/L Alanine Aminotransferase (ALT) < 9 7-40 U/L Alkaline Phosphatase 125 H 46-116 U/L C-Reactive Protein High Sensitivity 2.04 H <1.0 mg/dL Total Protein 7.0 5.7-8.2 g/dL Albumin 3.6 3.2-4.8 g/dL Troponin I High Sensitivity 7 </=34 ng/L Beta HCG, Quantitative 0.7 L 1.5-4.2 mIU/mL White Blood Count 8.8 4.4-10.8 10^3/uL Red Blood Count 4.47 4.0-5.20 10^6/uL Hemoglobin 13.3 12.2-16.2 g/dL Hematocrit 38.3 36.0-46.0 % Mean Corpuscular Volume 85.7 80.0-100.0 fL Mean Corpuscular Hemoglobin 29.9 28.0-32.0 pg Mean Corpuscular Hemoglobin Concent 34.8 32.0-36.0 g/dL Red Cell Distribution Width 12.5 11.8-14.3 % Platelet Count 373 140-450 10^3/uL Mean Platelet Volume 8.5 6.9-10.8 fL Neutrophils (%) (Auto) 76.5 37.0-80.0 % Lymphocytes (%) (Auto) 17.5 10.0-50.0 % Monocytes (%) (Auto) 4.9 0.0-12.0 % Eosinophils (%) (Auto) 0.6 0.0-7.0 % Basophils (%) (Auto) 0.5 0.0-2.0 % Neutrophils # (Auto) 6.7 1.6-8.6 10 ^3/uL Lymphocytes # (Auto) 1.5 0.4-5.4 10 ^3/uL Monocytes # (Auto) 0.4 0-1.3 10 ^3/uL Eosinophils # (Auto) 0.1 0-0.8 10 ^3/uL Basophils # (Auto) 0 0-0.2 10 ^3/uL Nucleated Red Blood Cells 0.0 % Sodium Level 135 L 136-145 mmol/L Potassium Level 3.9 3.5-5.1 mmol/L Chloride Level 104 98-107 mmol/L Carbon Dioxide Level 22 20-31 mmol/L Anion Gap 9 5-15 Blood Urea Nitrogen 21 9-23 mg/dL Creatinine 1.71 H 0.550-1.02 mg/dL Glomerular Filtration Rate Calc 37 >90 mL/min BUN/Creatinine Ratio 12.3 10.0-20.0 Serum Glucose 278 H 74-106 mg/dL Calcium Level 8.6 L 8.7-10.4 mg/dL SEPSIS Sepsis Screen Date sepsis recognized/suspect: Feb 24, 2025 Time Sepsis recognized/suspect: 2207 Recent Procedure: No On Antibiotic Therapy: No Respiratory Rate >20: No Heart Rate >90: Yes Temp<36 C (96.8 F) or >38.3 C: No SBP <90 or MAP <65 mmHG: No New Acute Mental Status Change: No Is the patient on CPAP, BIPAP,: No Physician Orders Admit (02/24/25 20:31) Code Status (02/24/25 20:31) Hydrocodone-Acet 5/325mg Tab ([place] 5/32 (02/24/25 20:45) Ondansetron Hcl (Zofran) (02/24/25 20:45) Complete Blood Count (02/25/25 04:00) Comprehensive Metabolic Panel (02/25/25 04:00) Cardiac Diet-2gna,Lofat,Lochol (02/25/25 Breakfast) Condition: Unstable (02/24/25 20:31) Acetaminophen Tablet (Tylenol Tablet) (02/24/25 20:45) Enoxaparin Sodium (Lovenox) (02/24/25 20:45) Wound Culture W/ Gs (02/24/25 20:31) Podiatry Consult (02/24/25 20:31) Glucose Blood (Accu-Chek Comfort Curve T (02/24/25 22:00) Insulin R (Human) (Insulin R) (02/24/25 22:00) Dextrose 50% Syringe (02/24/25 20:45) Urinalysis (02/24/25 20:31) LIVER (02/24/25 20:31) Drug Screen (02/24/25 20:31) Ct L Foot Wo Contrast (02/24/25 20:31) * Wound Consult (02/24/25 ) Loratadine Tablet (Claritin Tablet) (02/25/25 10:00) Mrsa Screen (02/24/25 20:31) Vancomycin Per Pharmacy (02/24/25 20:45) Echo 2d Mode Cardiac Dop (02/24/25 20:31) Labetalol Hcl (Labetalol Hcl) (02/24/25 20:45) Nifedipine Er (Procardia Xl (Time-Releas (02/25/25 10:00) Vancomycin,Random (02/25/25 04:00) Vital Signs Date Time Temp Pulse Resp B/P (MAP) Pulse Ox O2 Delivery O2 Flow Rate FiO2 02/24/25 22:50 102 187/77 02/24/25 22:07 18 Room Air* 0 21 02/24/25 22:01 98.7 100 16 183/70 (107) 97 98.7 02/24/25 22:01 100 16 97 Room Air Medications Medications Dose Ordered Sig/Juan Route Start Time Stop Time Status Last Admin Dose Admin Acetaminophen/ Hydrocodone Bitart 1 tab Q4HP PRN PO 02/24/25 20:45 02/24/25 22:51 1 TAB Diagnostic Test (Pha) 1 strip ACHS 02/24/25 22:00 02/24/25 22:00 1 STRIP Diphenhydramine HCl 25 mg ONCE ONCE IV 02/24/25 20:45 02/24/25 21:18 DC 02/24/25 22:04 25 MG Enoxaparin Sodium 40 mg DAILY SC 02/24/25 20:45 02/24/25 22:05 40 MG Hydralazine HCl 20 mg ONCE ONCE PO 02/24/25 14:15 02/24/25 14:16 DC 02/24/25 14:56 20 MG Insulin Human Regular ACHS SC 02/24/25 22:00 02/24/25 23:08 8 UNITS Labetalol HCl 10 mg Q4HPRN PRN IV 02/24/25 20:45 02/24/25 22:50 10 MG Vancomycin HCl 250 ml @ 250 mls/hr ONCE ONCE IV 02/24/25 22:00 02/24/25 22:59 DC 02/24/25 22:50 250 MLS/HR Assessment/Plan Assessment/Plan #Hypertensive emergency #HENRI from hypertension - EKG - tropes negative - echo - hydralazine 20 mg p.o. given once - labetalol 10 mg q.4 PRN if SBP/ 160 - nifedipine ER 30 mg p.o. daily - ua -BP monitoring frequently overnight: BP at admission 232/115--> 172/73--> 152/73--->187/77--> 148/55 (not all have been documented in vitals chart) #Right facial swelling, likely allergic reaction - Benadryl 25 mg IV once - loratadine 10 mg p.o. daily #Type 2 diabetes mellitus #Diabetic left foot wound, stage II - A1c - podiatry consult - IV vancomycin as per pharmacy - wound culture and Gram stain - wound consult - ESR 98, CRP 2.04 - CT left foot without contrast shows: Diffuse soft tissue swelling. No CT evidence for acute osteomyelitis. - beta-hCG negative - UDS - mild sliding scale insulin - Accu-Cheks DVT prophylaxis: Lovenox 40 mg subcutaneous daily Diet: cardiac and diabetic diet Goals of care discussed with the patient for more than 27 minutes: Full code status Case discussed with Dr. Monge, patient Plan discussed with: Patient My Orders Orders - LUKE COHEN RESIDENT Procedure Category Date Status Time Admit ADMIT 02/24/25 Transmitted 20:31 Code Status CODE 02/24/25 Transmitted 20:31 Hydrocodone-Acet PHA 02/24/25 In Process 5/325mg Tab ([place] 20:45 Ondansetron Hcl PHA 02/24/25 In Process (Zofran) 20:45 Complete Blood Count LAB 02/25/25 Verified 04:00 Comprehensive LAB 02/25/25 Verified Metabolic Panel 04:00 Cardiac DIET 02/25/25 Transmitted Diet-2gna,Lofat,Lochol Breakfast Condition: Unstable DONAVON 02/24/25 In Process 20:31 Acetaminophen Tablet PHA 02/24/25 In Process (Tylenol Tablet) 20:45 Enoxaparin Sodium PHA 02/24/25 In Process (Lovenox) 20:45 Wound Culture W/ Gs RENETTA 02/24/25 Logged 20:31 Podiatry Consult CONS 02/24/25 Transmitted 20:31 Glucose Blood PHA 02/24/25 In Process (Accu-Chek Comfort 22:00 Insulin R (Human) PHA 02/24/25 In Process (Insulin R) 22:00 Dextrose 50% Syringe PHA 02/24/25 In Process 20:45 Urinalysis LAB 02/24/25 Logged 20:31 LIVER US 02/24/25 Resulted 20:31 Drug Screen LAB 02/24/25 Logged 20:31 Ct L Foot Wo Contrast CT 02/24/25 Resulted 20:31 * Wound Consult CONS 02/24/25 Transmitted Loratadine Tablet PHA 02/25/25 In Process (Claritin Tablet) 10:00 Mrsa Screen RENETTA 02/24/25 Logged 20:31 Vancomycin Per PHA 02/24/25 In Process Pharmacy 20:45 Echo 2d Mode Cardiac US 02/24/25 Logged DOP 20:31 Labetalol Hcl PHA 02/24/25 In Process (Labetalol Hcl) 20:45 Nifedipine Er PHA 02/25/25 In Process (Procardia Xl 10:00 Vancomycin,Random LAB 02/25/25 Verified 04:00 Date of Service: Feb 25, 2025 Billing Provider: ABBEY MONGE MD Common Visit Codes: [id number] INP/OBS CARE (HIGH) Secondary Visit Codes: [id number] CARE PLAN 30 MINUTES LUKE COHEN RESIDENT Feb 24, 2025 23:49
[2025-02-25] VITALS (7 sets, daily range): BP systolic 103–187; BP diastolic 71–80; PULSE 80–101; RESP 16–18; TEMP 98–99.3; O2SAT 96–99
[2025-02-25 07:50] LABS: Hematocrit 37.8 % (36.0-46.0); Hemoglobin 13.1 g/dL (12.2-16.2); Mean Corpuscular Hemoglobin 30.0 pg (28.0-32.0); Mean Corpuscular Volume 86.3 fL (80.0-100.0); Nucleated Red Blood Cells % 0.0 %
[2025-02-25 08:05] LABS: Alanine Aminotransferase 10 U/L (7-40); Albumin 3.6 g/dL (3.2-4.8); Alkaline Phosphatase 107 U/L (46-116); BUN/Creatinine Ratio 11.5 (10.0-20.0); Blood Urea Nitrogen 21 mg/dL (9-23); Carbon Dioxide 23 mmol/L (20-31); Potassium 4.0 mmol/L (3.5-5.1); Sodium 137 mmol/L (136-145); Total Protein 7.0 g/dL (5.7-8.2)
[2025-02-25 08:06] LABS: Bilirubin, Total 0.4 mg/dL (0.2-1.0)
[2025-02-25 08:13] LABS: Calcium 8.3 mg/dL (8.7-10.4); Glucose 148 mg/dL (74-106)
[2025-02-25 08:51] LABS: Anion Gap 9 (5-15); Chloride 105 mmol/L (98-107)
[2025-02-25 10:04] LABS: Urine Protein, UAD 3+ (Negative)
[2025-02-25 10:16] LABS: Amphetamine Screen, Urine Neg (NEGATIVE); Barbiturate Scree,Urine Neg (NEGATIVE); Benzodiazephine Screen, Urine Neg (NEGATIVE); Cannabinoid Screen, Urine Neg (NEGATIVE); Cocaine Screen, Urine Neg (NEGATIVE); Opiate Scree,Urine Neg (NEGATIVE); Phencyclidine Screen, Urine Neg (NEGATIVE)
[2025-02-25] MEDS: LORATADINE 10 MG TAB PO SCH (10:58)
[2025-02-25] MEDS: PIPERACILLIN-TAZOB 3.375GM 100 ML IV ONE (13:21)
--- NOTE | 2025-02-25 14:58 | DVH ---
INDICATION: sinusitis EXAM DATE: 02/25/2025 01:11 PM COMPARISON: CT HEAD WITHOUT CONTRAST on DOS: 02/24/25, CT HEAD WITHOUT CONTRAST on DOS: 08/16/23, HEAD WITHOUT CONTRAST on DOS: 12/29/19 TECHNIQUE: CT of the sinuses without intravenous contrast. RADIATION DOSE: CTDIvol: 66.95 mGy, DLP: 1229.39 mGy*cm FINDINGS: The frontal sinuses are clear. The ethmoid air cells are clear bilaterally. The maxillary sinuses are clear bilaterally. The sphenoid sinuses are clear. The ostiomeatal unit complexes appear patent bilaterally. The cribriform plate and lamina papyracea appear grossly intact. No abnormality of the orbits or globes is identified. The visualized brain is unremarkable. The surrounding soft tissues and osseous structures are unremarkable. IMPRESSION: Clear paranasal sinuses. Anatomy as detailed above. Calcified left orbit from prior trauma. Radiation optimization: All CT scans at this facility use at least one of these dose optimization techniques: automated exposure control mA and/or kV adjustment per patient size (includes targeted exams where dose is matched to clinical indication) or iterative reconstruction.
--- NOTE | 2025-02-25 15:57 | DVHPNRES ---
Progress Note Date Seen: Feb 25, 2025 Resident Creating Document: AILIN VASQUEZ RESIDENT Medical Necessity Reason Pt with a Central, PICC or Fol: No Subjective Review of Systems 49-year-old female with past medical history of hypertension, type 2 diabetes mellitus, glaucoma presented with complaints of swelling and burning the right side of the face. Patient reports that it has been 4 days since the area above the lips and bilateral cheeks began to swell, R>L side which began after she cleaned her refrigerator with vinegar. She also reported slight difficulty in swallowing which had been present for the last 1 month. She met her PCP who suggested to visit the emergency room. She also has a wound on the left heel with yellow-colored discharged. In the ED, BP was noted to be 230/115. PMH: Hypertension, type 2 diabetes PSH: Right eye glaucoma surgery Social history: Patient denies ever smoking, drinking alcohol or abusing illicit drugs Family history: Reviewed, noncontributory to the management of this case PCP: Dr. Holden Allergies: None Code status: Full code General: patient denies fever, fatigue, weaknes, sweating, any recent changes in appetite and weight HEENT: Complains of pain and swelling right side of face Cardiovascular: Denies chest pain, palpitations, dyspnea on exertion, orthopnea, or claudication. Respiratory: No cough, and wheezing. Gastrointestinal: Denies nausea, vomiting, dysphagia, odynophagia, heartburn, abdominal pain, flatulence, bloating, diarrhea, constipation, change in stool, or blood in stool. Genitourinary: No dysuria, hematuria, discharge, frequency, urgency, nocturia, incontinence, and urinary retention. Endocrine: No heat or cold intolerance, polydipsia, polyuria, and polyphagia. Neurological: No dizziness, extremity weakness and numbness, tremors, gait disturbance, seizures, and memory impairment. Psychiatric: Denies depression, anxiety,or insomnia. Musculoskeletal: Denies neck pain, stiffness and swelling, back pain, muscle weakness, joint pain, stiffness, swelling, or limited range of motion. Skin: No rashes, itching, skin lesion, changes in hair, nail, skin texture and breast. Hematologic/Lymphatic: Denies easy bruising, bleeding tendencies, or lymph node enlargement. Objective vital signs Vital Sign Date Time Temp Pulse Resp B/P (MAP) Pulse Ox O2 Delivery O2 Flow Rate FiO2 02/25/25 13:00 98.6 82 16 103/73 (83) 99 98.6 02/24/25 22:07 Room Air* 0 21 medications Current Medications Medications Dose Ordered Sig/Juan Route Start Time Stop Time Status Last Admin Dose Admin Acetaminophen/ Hydrocodone Bitart 1 tab Q4HP PRN PO 02/24/25 20:45 02/24/25 22:51 1 TAB Ondansetron HCl 4 mg Q4HP PRN IV 02/24/25 20:45 Acetaminophen 650 mg Q6HP PRN PO 02/24/25 20:45 Enoxaparin Sodium 40 mg DAILY SC 02/24/25 20:45 02/25/25 10:59 40 MG Diagnostic Test (Pha) 1 strip ACHS 02/24/25 22:00 02/25/25 12:47 1 STRIP Insulin Human Regular ACHS SC 02/24/25 22:00 02/25/25 12:48 4 UNITS Dextrose 50 ml UD PRN IV 02/24/25 20:45 Loratadine 10 mg DAILY PO 02/25/25 10:00 02/25/25 10:58 10 MG Vancomycin HCl 0 ml @ 0 mls/hr PER PHARMACY IV 02/24/25 20:45 Labetalol HCl 10 mg Q4HPRN PRN IV 02/24/25 20:45 02/25/25 06:29 10 MG Nifedipine 60 mg DAILY PO 02/25/25 10:15 02/25/25 10:58 60 MG Piperacillin Sod/ Tazobactam Sod 100 ml @ 25 mls/hr Q12HR IV 02/25/25 22:00 Examination General Appearance: Alert, Oriented X3, Cooperative, No acute distress HEENT: Mild nonpitting edema in the right side of the face Respiratory: Clear to auscultation, Normal air movement Cardiovascular: Regular rate, Normal S1, Normal S2, No murmurs, no chest wall tenderness Abdominal: Normal bowel sounds, Soft, No tenderness, No hepatospenomegaly, No masses Extremities: Ulcer in the left heel Skin: No rashes, No breakdown, No significant lesion Neuro: Normal gait, Normal speech, Strength at 5/5 X4 ext, Normal tone, Sensation intact, Cranial nerves 3-12 NL, Reflexes 2+ Psych/Mental Status: Mental status NL, Mood NL laboratory and microbiology Laboratory Tests 02/25/25 07:24 Test 02/25/25 07:24 Range/Units Serum Glucose 148 H 74-106 mg/dL Problem List/Assessment/Plan Problem List/Assessment/Plan Assessment/Plan #Hypertensive emergency #HENRI from hypertension - EKG - tropes negative - echo - hydralazine 20 mg p.o. given once - labetalol 10 mg q.4 PRN if SBP/ 160 - nifedipine ER 30 mg p.o. daily - ua - BP monitoring frequently overnight: BP at admission 232/115--> 172/73--> 152/73--->187/77--> 148/55 (not all have been documented in vitals chart) #Right facial swelling, likely sinusitis/allergic reaction - CT oromaxillary sinus - Benadryl 25 mg IV once - loratadine 10 mg p.o. daily #Type 2 diabetes mellitus #Diabetic left foot wound, stage II, POA - iv Antibiotics - A1c - podiatry consult - IV vancomycin as per pharmacy - wound culture and Gram stain - wound consult - ESR 98, CRP 2.04 - CT left foot without contrast shows: Diffuse soft tissue swelling. No CT evidence for acute osteomyelitis. - beta-hCG negative - UDS - mild sliding scale insulin - Accu-Cheks DVT prophylaxis: Lovenox 40 mg subcutaneous daily Diet: cardiac and diabetic diet Goals of care: Full code Case discussed with Dr. Brand Plan discussed with: Patient My Orders My Orders Orders - AILIN VASQUEZ RESIDENT Procedure Category Date Status Time Urine Protein LAB 02/25/25 Logged 10:10 Urine Creatinine LAB 02/25/25 Logged 10:10 Complete Blood Count LAB 02/26/25 Verified 04:00 Comprehensive LAB 02/26/25 Verified Metabolic Panel 04:[address] 02/25/25 Resulted 12:50 Transfer Orders XFER 02/25/25 Transmitted 15:52 Date of Service: Feb 25, 2025 Billing Provider: CHARITO BRAND MD Common Visit Codes: [id number] INP/OBS CARE(HIGH) AILIN VASQUEZ Feb 25, 2025 15:57 CHARITO BRAND MD Feb 26, 2025 06:26
[2025-02-25 19:10] LABS: Protein, Urine 1273.5 mg/dL (1-14)
[2025-02-25] MEDS: PIPERACILLIN-TAZOB 3.375GM 100 ML IV SCH (21:57)
[2025-02-26] VITALS (8 sets, daily range): BP systolic 150–176; BP diastolic 67–81; PULSE 94–105; RESP 18–20; TEMP 97.7–98.8; O2SAT 97–99
[2025-02-26 06:34] LABS: Hematocrit 35.9 % (36.0-46.0); Hemoglobin 12.4 g/dL (12.2-16.2); Mean Corpuscular Hemoglobin 29.6 pg (28.0-32.0); Mean Corpuscular Volume 85.9 fL (80.0-100.0); Nucleated Red Blood Cells % 0.1 %
[2025-02-26 06:51] LABS: Alanine Aminotransferase 12 U/L (7-40); Albumin 3.4 g/dL (3.2-4.8); Alkaline Phosphatase 103 U/L (46-116); Anion Gap 14 (5-15); BUN/Creatinine Ratio 9.8 (10.0-20.0); Bilirubin, Total 0.5 mg/dL (0.2-1.0); Blood Urea Nitrogen 20 mg/dL (9-23); Carbon Dioxide 21 mmol/L (20-31); Chloride 105 mmol/L (98-107); Sodium 140 mmol/L (136-145); Total Protein 6.6 g/dL (5.7-8.2)
[2025-02-26 06:52] LABS: Calcium 8.6 mg/dL (8.7-10.4); Glucose 145 mg/dL (74-106); Potassium 3.5 mmol/L (3.5-5.1)
[2025-02-26] MEDS: HEPARIN SODIUM (PORCINE) 5000 UNITS/ML 1ML VIAL SC SCH (10:08)
--- NOTE | 2025-02-26 12:42 | DVHCONRES ---
Date Seen: Feb 26, 2025 Reason for Consultation Left lateral foot eschar History of Present Illness 49-year-old female with a past medical history of hypertension and type 2 diabetes mellitus, has come with the chief complaints of swelling of the lower portion of her face. Patient reports that it has been 4 days that her area above the lips and bilateral cheeks began to swell, R>L side which began after she cleaned her Fridge with vinegar. She also reports slight difficulty in swallowing which has been present for the last 1 month. She met her PCP today who suggested to visit the emergency room, believing the wound on her left heel (which has been present for 5 months now but started draining some yellow- colored fluid for the past 3 days) could be connected to her chief complaints. Patient denies any tingling sensation on her face, no dental ache, pharyngeal pain, Ear pain, fever, chills, nausea, vomiting. she has not recently been exposed to any sick contacts and has not traveled anywhere. on arrival to the hospital her blood pressure was 232/115 mmHg for which hydralazine 20 mg p.o. once was given. Her blood pressure now is 152/73 mmHg on admission, pulse 105, temp 98.5, RR 15, SpO2 98% on room air. Tropes are negative, chest x-ray is normal, CT head is normal, she has HENRI, creatinine 1.71 and serum glucose is 278. We are admitting the patient for further workup and management Past Medical History See H&P Past Surgical History See H&P Family History: Stroke G8 FATHER Allergies: Coded Allergies: NO KNOWN ALLERGIES (Unverified , 06/22/16) Home Meds Active Scripts Metformin Hydrochloride (Metformin Hcl) 500 Mg Tab, 1 TAB PO BID, #60 TAB 0 Refills Prov:RACHAEL ADAMS MD 06/29/16 Levofloxacin Hemihydrate (LEVOFLOXACIN) 500 Mg Tab, 1 TAB PO DAILY, #7 TAB Prov:RACHAEL ADAMS MD 06/29/16 Current Medications Current Medications Medications (Trade) Dose Ordered Sig/Juan Route PRN Reason Start Time Stop Time Status Last Admin Piperacillin Sod/ Tazobactam Sod 100 ml @ 25 mls/hr Q12HR IV 02/25/25 22:00 02/26/25 11:28 DC 02/25/25 21:57 Heparin Sodium (Porcine) 5,000 units Q12HR SC 02/26/25 10:00 02/26/25 10:08 Cefepime HCl 50 ml @ 12.5 mls/hr DAILY IV 02/27/25 10:00 Vital Signs Vital Signs Date Time Temp Pulse Resp B/P (MAP) Pulse Ox O2 Delivery O2 Flow Rate FiO2 02/26/25 09:55 167/79 02/26/25 09:10 98.2 102 18 98 98.2 02/26/25 08:00 Room Air* 0 21 Physical Exam Dermatological: Skin is dry with mild erythema and some maceration around the wound site No gross deformities noted Mild non-pitting edema present bilaterally Left lateral foot eschar with no surrounding erythema Vascular: Dorsalis pedis and posterior tibial pulses are 1+ bilaterally Capillary refill is under 2 seconds Skin temperature is warm bilaterally Neurologic: Protective sensation is absent on the plantar forefoot bilaterally Monofilament testing reveals decreased sensation in multiple plantar sites Musculoskeletal: Range of motion at the ankle and MTP joints is within normal limits. Strength is 5/5 in all tested muscle groups. Gait is antalgic due to offloading of the affected limb. Labs/Diagnostic Data Labs Test 02/26/25 12:28 02/26/25 04:45 02/25/25 08:45 02/25/25 07:24 Range/Units POC Glucose 229 H 70-106 mg/dl White Blood Count 6.7 4.4-10.8 10^3/uL Red Blood Count 4.19 4.0-5.20 10^6/uL Hemoglobin 12.4 12.2-16.2 g/dL Hematocrit 35.9 L 36.0-46.0 % Mean Corpuscular Volume 85.9 80.0-100.0 fL Mean Corpuscular Hemoglobin 29.6 28.0-32.0 pg Mean Corpuscular Hemoglobin Concent 34.4 32.0-36.0 g/dL Red Cell Distribution Width 13.1 11.8-14.3 % Platelet Count 392 140-450 10^3/uL Mean Platelet Volume 8.7 6.9-10.8 fL Neutrophils (%) (Auto) 52.6 37.0-80.0 % Lymphocytes (%) (Auto) 37.3 10.0-50.0 % Monocytes (%) (Auto) 6.6 0.0-12.0 % Eosinophils (%) (Auto) 2.9 0.0-7.0 % Basophils (%) (Auto) 0.6 0.0-2.0 % Neutrophils # (Auto) 3.5 1.6-8.6 10 ^3/uL Lymphocytes # (Auto) 2.5 0.4-5.4 10 ^3/uL Monocytes # (Auto) 0.4 0-1.3 10 ^3/uL Eosinophils # (Auto) 0.2 0-0.8 10 ^3/uL Basophils # (Auto) 0 0-0.2 10 ^3/uL Nucleated Red Blood Cells 0.1 % Sodium Level 140 136-145 mmol/L Potassium Level 3.5 3.5-5.1 mmol/L Chloride Level 105 98-107 mmol/L Carbon Dioxide Level 21 20-31 mmol/L Anion Gap 14 5-15 Blood Urea Nitrogen 20 9-23 mg/dL Creatinine 2.05 H 0.550-1.02 mg/dL Glomerular Filtration Rate Calc 29 >90 mL/min BUN/Creatinine Ratio 9.8 L 10.0-20.0 Serum Glucose 145 H 74-106 mg/dL Calcium Level 8.6 L 8.7-10.4 mg/dL Total Bilirubin 0.5 0.2-1.0 mg/dL Aspartate Amino Transferase (AST) 20 13-40 U/L Alanine Aminotransferase (ALT) 12 7-40 U/L Alkaline Phosphatase 103 46-116 U/L Total Protein 6.6 5.7-8.2 g/dL Albumin 3.4 3.2-4.8 g/dL Random Vancomycin Level 14.0 H 5-10 ug/mL Urine Color Light-yellow Yellow Urine Clarity Turbid H Clear Urine pH 6.5 5.0-9.0 Urine Specific [place] 1.021 1.001-1.035 Urine Protein 3+ H Negative Urine Ketones Negative Negative Urine Blood Trace H Negative /uL Urine Nitrite Negative Negative Urine Bilirubin Negative Negative Urine Urobilinogen Normal Negative mg/dL Urine Leukocyte Esterase Negative Negative /uL Urine RBC 2 0 - 4 /hpf Urine Microscopic WBC 19 H 0-5 /HPF Urine Squamous Epithelial Cells Few <5 /hpf Urine Bacteria None seen None Seen /hpf Urine Hyaline Casts Moderate 0 - 2 /lpf Urine Creatinine 115.11 30.0-125.0 mg/dL Urine Glucose 3+ H Normal mg/dL Urine Total Protein 1273.5 H 1-14 mg/dL Urine Test Negative Negative Urine Opiates Screen Neg NEGATIVE Urine Fentanyl Screen Neg NEGATIVE Urine Barbiturates Screen Neg NEGATIVE Urine Phencyclidine Screen Neg NEGATIVE Urine Amphetamines Screen Neg NEGATIVE Urine Benzodiazepines Screen Neg NEGATIVE Urine Cocaine Screen Neg NEGATIVE Urine Cannabinoids Screen Neg NEGATIVE Hemoglobin A1c 8.6 H <5.7 % A1C Test 02/24/25 21:20 02/24/25 13:58 02/24/25 11:45 Range/Units Erythrocyte Sedimentation Rate 98 H 0-20 mm/hr Magnesium Level 2.1 1.6-2.6 mg/dL Direct Bilirubin < 0.1 <0.3 mg/dL C-Reactive Protein High Sensitivity 2.04 H <1.0 mg/dL Troponin I High Sensitivity 7 </=34 ng/L Beta HCG, Quantitative 0.7 L 1.5-4.2 mIU/mL Microbiology Date/Time Source Procedure Growth Status 02/24/25 10:00 Foot Left Gram Stain Pending Resulted 02/24/25 10:00 Foot Left Wound Culture - Preliminary Resulted Problems(with codes): (1) Fever and chills (2) Renal abscess, left (3) Uncontrolled diabetes mellitus (4) Hypertension (5) Hyperglycemia due to diabetes mellitus (6) Hypertensive urgency (7) Right sided facial pain Plan/Recommendation ASSESSMENT: Patient is a 49 year old seen on the floor for a worsening ulcer PLAN: - The patients chart was reviewed, clinical findings were discussed with the patient, the etiologies of the conditions were discussed in detail, and a treatment plan was agreed to at this time, with both oral and written instructions provided. - reviewed advanced imaging - appears to be a stable eschar at this point - recommend we would dress with [facility] - follow up for outpatient wound care - no surgical intervention recommended at this point All questions were answered and concerns addressed to the patient's satisfaction. The patient was given the phone number to the clinic and was told how to make contact with the clinic should any concerns or questions arise. Patient understands that if any questions or concerns arise prior to the next appointment, we should be contacted immediately. FOLLOW-UP: Continue to follow while inpatient Plan discussed with: Patient Visit Coding Podiatry Date of Service if different f: Feb 26, 2025 Billing Provider: SAMMY RAMIREZ DPM Podiatry Common Visit Codes: CONSULT ONLY Podiatry Consult Codes: [id number] NEW/EST HI 80 SAMMY RAMIREZ DPM Feb 26, 2025 12:42
--- NOTE | 2025-02-26 15:12 | DVHPNRES ---
Progress Note Date Seen: Feb 26, 2025 Resident Creating Document: AILIN VASQUEZ RESIDENT Medical Necessity Reason Pt with a Central, PICC or Fol: No Subjective Review of Systems Patient seen at bedside. No new complaints. Creatinine levels trending up. switched Zosyn to cefepime. Wound culture pending 49-year-old female with past medical history of hypertension, type 2 diabetes mellitus, glaucoma presented with complaints of swelling and burning the right side of the face. Patient reports that it has been 4 days since the area above the lips and bilateral cheeks began to swell, R>L side which began after she cleaned her refrigerator with vinegar. She also reported slight difficulty in swallowing which had been present for the last 1 month. She met her PCP who suggested to visit the emergency room. She also has a wound on the left heel with yellow-colored discharged. In the ED, BP was noted to be 230/115. PMH: Hypertension, type 2 diabetes PSH: Right eye glaucoma surgery Social history: Patient denies ever smoking, drinking alcohol or abusing illicit drugs Family history: Reviewed, noncontributory to the management of this case PCP: Dr. Holden Allergies: None Code status: Full code General: patient denies fever, fatigue, weaknes, sweating, any recent changes in appetite and weight HEENT: Complains of pain and swelling right side of face Cardiovascular: Denies chest pain, palpitations, dyspnea on exertion, orthopnea, or claudication. Respiratory: No cough, and wheezing. Gastrointestinal: Denies nausea, vomiting, dysphagia, odynophagia, heartburn, abdominal pain, flatulence, bloating, diarrhea, constipation, change in stool, or blood in stool. Genitourinary: No dysuria, hematuria, discharge, frequency, urgency, nocturia, incontinence, and urinary retention. Endocrine: No heat or cold intolerance, polydipsia, polyuria, and polyphagia. Neurological: No dizziness, extremity weakness and numbness, tremors, gait disturbance, seizures, and memory impairment. Psychiatric: Denies depression, anxiety,or insomnia. Musculoskeletal: Denies neck pain, stiffness and swelling, back pain, muscle weakness, joint pain, stiffness, swelling, or limited range of motion. Skin: No rashes, itching, skin lesion, changes in hair, nail, skin texture and breast. Hematologic/Lymphatic: Denies easy bruising, bleeding tendencies, or lymph node enlargement. Objective vital signs Vital Sign Date Time Temp Pulse Resp B/P (MAP) Pulse Ox O2 Delivery O2 Flow Rate FiO2 02/26/25 13:00 98.3 105 20 150/67 (94) 97 98.3 02/26/25 08:00 Room Air* 0 21 Total Intake and Output 02/25/25 02/25/25 02/26/25 15:00 23:00 07:00 Intake Total 1060 ml 450 ml Balance 1060 ml 450 ml medications Current Medications Medications Dose Ordered Sig/Juan Route Start Time Stop Time Status Last Admin Dose Admin Acetaminophen/ Hydrocodone Bitart 1 tab Q4HP PRN PO 02/24/25 20:45 02/24/25 22:51 1 TAB Ondansetron HCl 4 mg Q4HP PRN IV 02/24/25 20:45 Acetaminophen 650 mg Q6HP PRN PO 02/24/25 20:45 Diagnostic Test (Pha) 1 strip ACHS 02/24/25 22:00 02/26/25 11:30 1 STRIP Insulin Human Regular ACHS SC 02/24/25 22:00 02/26/25 13:06 4 UNITS Dextrose 50 ml UD PRN IV 02/24/25 20:45 Loratadine 10 mg DAILY PO 02/25/25 10:00 02/26/25 09:56 10 MG Vancomycin HCl 0 ml @ 0 mls/hr PER PHARMACY IV 02/24/25 20:45 Labetalol HCl 10 mg Q4HPRN PRN IV 02/24/25 20:45 02/25/25 06:29 10 MG Nifedipine 60 mg DAILY PO 02/25/25 10:15 02/26/25 09:55 60 MG Heparin Sodium (Porcine) 5,000 units Q12HR SC 02/26/25 10:00 02/26/25 10:08 5,000 UNITS Cefepime HCl 50 ml @ 12.5 mls/hr DAILY IV 02/27/25 10:00 Examination General Appearance: Alert, Oriented X3, Cooperative, No acute distress HEENT: Mild nonpitting edema in the right side of the face Respiratory: Clear to auscultation, Normal air movement Cardiovascular: Regular rate, Normal S1, Normal S2, No murmurs, no chest wall tenderness Abdominal: Normal bowel sounds, Soft, No tenderness, No hepatospenomegaly, No masses Extremities: Ulcer in the left heel Skin: No rashes, No breakdown, No significant lesion Neuro: Normal gait, Normal speech, Strength at 5/5 X4 ext, Normal tone, Sensation intact, Cranial nerves 3-12 NL, Reflexes 2+ Psych/Mental Status: Mental status NL, Mood NL laboratory and microbiology Laboratory Tests 02/26/25 04:45 Test 02/26/25 04:45 Range/Units Serum Glucose 145 H 74-106 mg/dL Microbiology Date/Time Source Procedure Growth Status 02/24/25 10:00 Foot Left Gram Stain Pending Resulted 02/24/25 10:00 Foot Left Wound Culture - Preliminary Resulted Problem List/Assessment/Plan Problem List/Assessment/Plan Assessment/Plan #Hypertensive emergency #HENRI from hypertension #Possible underlying diabetic nephropathy - elevated urine protein - EKG - tropes negative - echo - hydralazine 20 mg p.o. given once - labetalol 10 mg q.4 PRN if SBP/ 160 - nifedipine ER 30 mg p.o. daily - ua - BP monitoring frequently overnight: BP at admission 232/115--> 172/73--> 152/73--->187/77--> 148/55 (not all have been documented in vitals chart) #Right facial swelling, likely sinusitis/allergic reaction - CT oromaxillary sinus - Benadryl 25 mg IV once - loratadine 10 mg p.o. daily #Type 2 diabetes mellitus #Diabetic left foot wound, stage II, POA - iv Antibiotics - A1c - podiatry consult - IV vancomycin as per pharmacy - iv cefipime - wound culture and Gram stain - wound consult - ESR 98, CRP 2.04 - CT left foot without contrast shows: Diffuse soft tissue swelling. No CT evidence for acute osteomyelitis. - beta-hCG negative - UDS - mild sliding scale insulin - Accu-Cheks DVT prophylaxis: Lovenox 40 mg subcutaneous daily Diet: cardiac and diabetic diet Goals of care: Full code Case discussed with Dr. Brand Plan discussed with: Patient My Orders My Orders Orders - AILIN VASQUEZ RESIDENT Procedure Category Date Status Time Transfer Orders XFER 02/25/25 Transmitted 15:52 Date of Service: Feb 26, 2025 Billing Provider: CHARITO BRAND MD Common Visit Codes: [id number] INP/OBS CARE(HIGH) AILIN VASQUEZ Feb 26, 2025 15:12 CHARITO BRAND MD Feb 26, 2025 16:20
[2025-02-26] MEDS: INSULIN LANTUS (GLARGINE) 1 /0.01ml (100units/ml) SC SCH (21:51)
[2025-02-27] VITALS (8 sets, daily range): BP systolic 144–173; BP diastolic 57–85; PULSE 84–99; RESP 16–18; TEMP 98.2–98.7; O2SAT 83–99
[2025-02-27] MEDS: CEFEPIME 1GM/50ML 50 ML IV SCH (10:03)
--- NOTE | 2025-02-27 13:38 | DVHPNRES ---
Progress Note Date Seen: Feb 27, 2025 Resident Creating Document: CHARITO PAIZ MD Medical Necessity Reason Pt with a Central, PICC or Fol: No Subjective Review of Systems Patient seen at bedside. No new complaints. Creatinine levels trending down. Wound culture pending. 49-year-old female with past medical history of hypertension, type 2 diabetes mellitus, glaucoma presented with complaints of swelling and burning the right side of the face. Patient reports that it has been 4 days since the area above the lips and bilateral cheeks began to swell, R>L side which began after she cleaned her refrigerator with vinegar. She also reported slight difficulty in swallowing which had been present for the last 1 month. She met her PCP who suggested to visit the emergency room. She also has a wound on the left heel with yellow-colored discharged. In the ED, BP was noted to be 230/115. PMH: Hypertension, type 2 diabetes PSH: Right eye glaucoma surgery Social history: Patient denies ever smoking, drinking alcohol or abusing illicit drugs Family history: Reviewed, noncontributory to the management of this case PCP: Dr. Holden Allergies: None Code status: Full code General: patient denies fever, fatigue, weaknes, sweating, any recent changes in appetite and weight HEENT: Complains of pain and swelling right side of face Cardiovascular: Denies chest pain, palpitations, dyspnea on exertion, orthopnea, or claudication. Respiratory: No cough, and wheezing. Gastrointestinal: Denies nausea, vomiting, dysphagia, odynophagia, heartburn, abdominal pain, flatulence, bloating, diarrhea, constipation, change in stool, or blood in stool. Genitourinary: No dysuria, hematuria, discharge, frequency, urgency, nocturia, incontinence, and urinary retention. Endocrine: No heat or cold intolerance, polydipsia, polyuria, and polyphagia. Neurological: No dizziness, extremity weakness and numbness, tremors, gait disturbance, seizures, and memory impairment. Psychiatric: Denies depression, anxiety,or insomnia. Musculoskeletal: Denies neck pain, stiffness and swelling, back pain, muscle weakness, joint pain, stiffness, swelling, or limited range of motion. Skin: No rashes, itching, skin lesion, changes in hair, nail, skin texture and breast. Hematologic/Lymphatic: Denies easy bruising, bleeding tendencies, or lymph node enlargement. Objective vital signs Vital Sign Date Time Temp Pulse Resp B/P (MAP) Pulse Ox O2 Delivery O2 Flow Rate FiO2 02/27/25 10:05 144/57 02/27/25 09:00 98.4 91 16 99 98.4 02/27/25 08:00 Room Air* 0 21 Total Intake and Output 02/26/25 02/26/25 02/27/25 15:00 23:00 07:00 Intake Total 1280 ml 1600 ml Balance 1280 ml 1600 ml medications Current Medications Medications Dose Ordered Sig/Juan Route Start Time Stop Time Status Last Admin Dose Admin Acetaminophen/ Hydrocodone Bitart 1 tab Q4HP PRN PO 02/24/25 20:45 02/26/25 21:42 1 TAB Ondansetron HCl 4 mg Q4HP PRN IV 02/24/25 20:45 Acetaminophen 650 mg Q6HP PRN PO 02/24/25 20:45 Diagnostic Test (Pha) 1 strip ACHS 02/24/25 22:00 02/27/25 11:30 1 STRIP Insulin Human Regular ACHS SC 02/24/25 22:00 02/26/25 21:52 4 UNITS Dextrose 50 ml UD PRN IV 02/24/25 20:45 Loratadine 10 mg DAILY PO 02/25/25 10:00 02/27/25 10:03 10 MG Vancomycin HCl 0 ml @ 0 mls/hr PER PHARMACY IV 02/24/25 20:45 Labetalol HCl 10 mg Q4HPRN PRN IV 02/24/25 20:45 02/26/25 21:54 10 MG Nifedipine 60 mg DAILY PO 02/25/25 10:15 02/27/25 10:05 60 MG Heparin Sodium (Porcine) 5,000 units Q12HR SC 02/26/25 10:00 02/27/25 10:14 5,000 UNITS Cefepime HCl 50 ml @ 12.5 mls/hr DAILY IV 02/27/25 10:00 02/27/25 10:03 12.5 MLS/HR Insulin Glargine 9 units HS SC 02/26/25 22:00 02/26/25 21:51 9 UNITS Examination General Appearance: Alert, Oriented X3, Cooperative, No acute distress HEENT: Mild nonpitting edema in the right side of the face Respiratory: Clear to auscultation, Normal air movement Cardiovascular: Regular rate, Normal S1, Normal S2, No murmurs, no chest wall tenderness Abdominal: Normal bowel sounds, Soft, No tenderness, No hepatospenomegaly, No masses Extremities: Ulcer in the left heel Skin: No rashes, No breakdown, No significant lesion Neuro: Normal gait, Normal speech, Strength at 5/5 X4 ext, Normal tone, Sensation intact, Cranial nerves 3-12 NL, Reflexes 2+ Psych/Mental Status: Mental status NL, Mood NL laboratory and microbiology Laboratory Tests 02/27/25 05:27 02/26/25 04:45 Test 02/26/25 04:45 Range/Units Serum Glucose 145 H 74-106 mg/dL Microbiology Date/Time Source Procedure Growth Status 02/24/25 10:00 Foot Left Gram Stain Pending Resulted 02/24/25 10:00 Wound Culture - Preliminary Staphylococcus aureus Resulted Problem List/Assessment/Plan Problem List/Assessment/Plan Assessment/Plan #Hypertensive emergency #HENRI from hypertension #Possible underlying diabetic nephropathy - elevated urine protein - EKG - tropes negative - echo - hydralazine 20 mg p.o. given once - labetalol 10 mg q.4 PRN if SBP/ 160 - nifedipine ER 30 mg p.o. daily - ua - BP monitoring frequently overnight: BP at admission 232/115--> 172/73--> 152/73--->187/77--> 148/55 (not all have been documented in vitals chart) #Right facial swelling, likely sinusitis/allergic reaction - CT oromaxillary sinus - Benadryl 25 mg IV once - loratadine 10 mg p.o. daily #Type 2 diabetes mellitus #Diabetic left foot wound, stage II, POA - iv Antibiotics - A1c - podiatry consult - IV vancomycin as per pharmacy - iv cefipime - wound culture and Gram stain - wound consult - ESR 98, CRP 2.04 - CT left foot without contrast shows: Diffuse soft tissue swelling. No CT evidence for acute osteomyelitis. - beta-hCG negative - UDS - mild sliding scale insulin - Accu-Cheks DVT prophylaxis: Lovenox 40 mg subcutaneous daily Diet: cardiac and diabetic diet Goals of care: Full code Case discussed with Dr. Paiz Plan discussed with: Patient My Orders My Orders Orders - THEEPURA,ANZAL RESIDENT Procedure Category Date Status Time Apply: DONAVON 02/26/25 In Process 14:40 * Dietary Consult CONS 02/26/25 Transmitted 16:10 Dietary Evaluation Review Comments: [facility]-45 Renal specific diet with 40-45g protein restriction Reinforce PO intake Expected Outcomes/Goals: Controlled blood glucose Avoid worsening of uremic syndrome Date of Service: Feb 27, 2025 Billing Provider: CHARITO PAIZ MD Common Visit Codes: [id number] INP/OBS CARE(HIGH) AILIN VASQUEZ RESIDENT Feb 27, 2025 13:38 CHARITO PAIZ MD Feb 27, 2025 22:32
[2025-02-27] MEDS: VANCOMYCIN 500mg/100mL 100 ML IV ONE (14:00)
[2025-02-28] VITALS (8 sets, daily range): BP systolic 134–183; BP diastolic 61–96; PULSE 60–99; RESP 15–18; TEMP 97.9–98.5; O2SAT 97–100
[2025-02-28 06:36] LABS: Alanine Aminotransferase 15 U/L (7-40); Albumin 3.1 g/dL (3.2-4.8); Alkaline Phosphatase 94 U/L (46-116); Anion Gap 12 (5-15); BUN/Creatinine Ratio 11.7 (10.0-20.0); Bilirubin, Total 0.3 mg/dL (0.2-1.0); Blood Urea Nitrogen 19 mg/dL (9-23); Calcium 8.3 mg/dL (8.7-10.4); Carbon Dioxide 22 mmol/L (20-31); Chloride 106 mmol/L (98-107); Glucose 141 mg/dL (74-106); Potassium 3.6 mmol/L (3.5-5.1); Sodium 140 mmol/L (136-145); Total Protein 5.8 g/dL (5.7-8.2)
[2025-02-28 06:55] LABS: Hematocrit 35.2 % (36.0-46.0); Hemoglobin 12.4 g/dL (12.2-16.2); Mean Corpuscular Hemoglobin 30.4 pg (28.0-32.0); Mean Corpuscular Volume 86.4 fL (80.0-100.0); Nucleated Red Blood Cells % 0.4 %
[2025-02-28] MEDS: AMOXICILLIN/CLAVUL 875 MG TAB PO SCH (10:15)
[2025-02-28] MEDS: ceFAZolin 2 GM/D5W50ml 50 ML IV SCH (14:00)
--- NOTE | 2025-02-28 14:33 | DVHSR ---
APPROVED REPORT EXAM: Two-dimensional and M-mode echocardiogram with Doppler and color Doppler. Blood Pressure: 154/68 mmHg INDICATION Chest Pain RISK FACTORS Height: 5'1, Weight: 155 DIMENSIONS LVDd 3.3 (3.8-5.7cm) LA (2D) 3.3 (1.9-4.0cm) Aortic Root 2.5 (2.0-3.7cm) LVDs 2.3 (2.5-4.0cm) LA (MM) (1.9-4.0cm) Aortic Cusp Exc 1.8 (1.5-2.0cm) EF (%) 56.0 (55-70%) Rt. Atrium 3.1 (1.9-4.0cm) Asc. Aorta 2.6 cm IVSd 1.6 (0.7-1.1cm) RV (D) (1.8-2.4cm) PWd 1.2 (0.7-1.1cm) Mitral Valve Mitral Mitral Stenosis E wave 0.86m/s MV Mean GR. mmHg A wave 0.91m/s MV Peak GR. mmHg E/A ratio 0.9 2D MVA cm2 DECEL Time 197ms PRESS 1/2 Time ms Aortic Valve Aortic Valve Aortic Stenosis V1 1.05m/s AO Mean GR. mmHg V2 1.14m/s AO Peak GR. 5mmHg LVOT Diameter 1.9 (1.8-2.4cm) Doppler GRETEL 2.61cm2 Other Information Technically limited study due to body habitus. Conclusion Sinus rhythm. Left atrial enlargement with concentric LVH. Valves are normal. EF of 60% with normal RV function. Moderate TR. No pericardial effusion masses or vegetations.
--- NOTE | 2025-02-28 15:25 | DVHPNRES ---
Progress Note Date Seen: Feb 28, 2025 Resident Creating Document: AILIN VASQUEZ RESIDENT Medical Necessity Reason Pt with a Central, PICC or Fol: No Subjective Review of Systems Patient seen at bedside. No new complaints. Creatinine 1.6. Wound culture grew S. Aureus. Started on Cefazolin. Blood pressure elevated. Increased Nifedipine dosage. 49-year-old female with past medical history of hypertension, type 2 diabetes mellitus, glaucoma presented with complaints of swelling and burning the right side of the face. Patient reports that it has been 4 days since the area above the lips and bilateral cheeks began to swell, R>L side which began after she cleaned her refrigerator with vinegar. She also reported slight difficulty in swallowing which had been present for the last 1 month. She met her PCP who suggested to visit the emergency room. She also has a wound on the left heel with yellow-colored discharged. In the ED, BP was noted to be 230/115. PMH: Hypertension, type 2 diabetes PSH: Right eye glaucoma surgery Social history: Patient denies ever smoking, drinking alcohol or abusing illicit drugs Family history: Reviewed, noncontributory to the management of this case PCP: Dr. Holden Allergies: None Code status: Full code General: patient denies fever, fatigue, weaknes, sweating, any recent changes in appetite and weight HEENT: Complains of pain and swelling right side of face Cardiovascular: Denies chest pain, palpitations, dyspnea on exertion, orthopnea, or claudication. Respiratory: No cough, and wheezing. Gastrointestinal: Denies nausea, vomiting, dysphagia, odynophagia, heartburn, abdominal pain, flatulence, bloating, diarrhea, constipation, change in stool, or blood in stool. Genitourinary: No dysuria, hematuria, discharge, frequency, urgency, nocturia, incontinence, and urinary retention. Endocrine: No heat or cold intolerance, polydipsia, polyuria, and polyphagia. Neurological: No dizziness, extremity weakness and numbness, tremors, gait disturbance, seizures, and memory impairment. Psychiatric: Denies depression, anxiety,or insomnia. Musculoskeletal: Denies neck pain, stiffness and swelling, back pain, muscle weakness, joint pain, stiffness, swelling, or limited range of motion. Skin: No rashes, itching, skin lesion, changes in hair, nail, skin texture and breast. Hematologic/Lymphatic: Denies easy bruising, bleeding tendencies, or lymph node enlargement. Objective vital signs Vital Sign Date Time Temp Pulse Resp B/P (MAP) Pulse Ox O2 Delivery O2 Flow Rate FiO2 02/28/25 11:45 182/83 02/28/25 09:00 98.2 96 18 99 98.2 02/28/25 08:00 Room Air* 0 21 Total Intake and Output 02/27/25 02/27/25 02/28/25 15:00 23:00 07:00 Intake Total 50 ml 4000 ml 1100 ml Balance 50 ml 4000 ml 1100 ml medications Current Medications Medications Dose Ordered Sig/Juan Route Start Time Stop Time Status Last Admin Dose Admin Acetaminophen/ Hydrocodone Bitart 1 tab Q4HP PRN PO 02/24/25 20:45 02/26/25 21:42 1 TAB Ondansetron HCl 4 mg Q4HP PRN IV 02/24/25 20:45 Acetaminophen 650 mg Q6HP PRN PO 02/24/25 20:45 Diagnostic Test (Pha) 1 strip ACHS 02/24/25 22:00 02/28/25 11:30 1 STRIP Insulin Human Regular ACHS SC 02/24/25 22:00 02/28/25 06:22 2 UNITS Dextrose 50 ml UD PRN IV 02/24/25 20:45 Loratadine 10 mg DAILY PO 02/25/25 10:00 02/28/25 10:15 10 MG Labetalol HCl 10 mg Q4HPRN PRN IV 02/24/25 20:45 02/27/25 18:50 10 MG Heparin Sodium (Porcine) 5,000 units Q12HR SC 02/26/25 10:00 02/28/25 10:16 5,000 UNITS Insulin Glargine 9 units HS SC 02/26/25 22:00 02/27/25 22:45 9 UNITS Nifedipine 90 mg DAILY PO 03/01/25 10:00 Cefazolin Sodium/ Dextrose 50 ml @ 50 mls/hr Q8HR IV 02/28/25 14:00 Examination General Appearance: Alert, Oriented X3, Cooperative, No acute distress HEENT: Mild nonpitting edema in the right side of the face Respiratory: Clear to auscultation, Normal air movement Cardiovascular: Regular rate, Normal S1, Normal S2, No murmurs, no chest wall tenderness Abdominal: Normal bowel sounds, Soft, No tenderness, No hepatospenomegaly, No masses Extremities: Ulcer in the left heel Skin: No rashes, No breakdown, No significant lesion Neuro: Normal gait, Normal speech, Strength at 5/5 X4 ext, Normal tone, Sensation intact, Cranial nerves 3-12 NL, Reflexes 2+ Psych/Mental Status: Mental status NL, Mood NL laboratory and microbiology Laboratory Tests 02/28/25 04:55 Test 02/28/25 04:55 Range/Units Serum Glucose 141 H 74-106 mg/dL Microbiology Date/Time Source Procedure Growth Status 02/24/25 10:00 Foot Left Gram Stain - Final Resulted 02/24/25 10:00 Wound Culture - Preliminary Staphylococcus aureus Escherichia coli Resulted Problem List/Assessment/Plan Problem List/Assessment/Plan Assessment/Plan #Hypertensive emergency #HENRI from hypertension #Possible underlying diabetic nephropathy - elevated urine protein - EKG - tropes negative - echo - hydralazine 20 mg p.o. given once - labetalol 10 mg q.4 PRN if SBP/ 160 - nifedipine ER 90 mg p.o. daily - ua - BP monitoring frequently overnight: BP at admission 232/115--> 172/73--> 152/73--->187/77--> 148/55 (not all have been documented in vitals chart) #Right facial swelling, likely sinusitis/allergic reaction - CT oromaxillary sinus - Benadryl 25 mg IV once - loratadine 10 mg p.o. daily #Type 2 diabetes mellitus #Diabetic left foot wound, stage II, POA - iv Antibiotics - A1c - podiatry consult - IV vancomycin as per pharmacy - iv cefipime - wound culture and Gram stain - wound consult - ESR 98, CRP 2.04 - CT left foot without contrast shows: Diffuse soft tissue swelling. No CT evidence for acute osteomyelitis. - beta-hCG negative - UDS - mild sliding scale insulin - Accu-Cheks DVT prophylaxis: Lovenox 40 mg subcutaneous daily Diet: cardiac and diabetic diet Goals of care: Full code Case discussed with Dr. Brand Plan discussed with: Patient My Orders My Orders Orders - AILIN VASQUEZ RESIDENT Procedure Category Date Status Time Complete Blood Count LAB 03/01/25 Verified 04:00 Comprehensive LAB 03/01/25 Verified Metabolic Panel 04:00 Dietary Evaluation Review Comments[facility] Ren[facility] specific diet with 40-45g protein restriction Reinforce PO intake Expected Outcomes/Goals: Controlled blood glucose Avoid worsening of uremic syndrome Date of Service: Feb 28, 2025 Billing Provider: CHARITO BRAND MD Common Visit Codes: [id number] INP/OBS CARE(HIGH) AILIN VASQUEZ RESIDENT Feb 28, 2025 15:25 CHARITO BRAND MD Feb 28, 2025 23:53
[2025-03-01 01:00] VITALS: BP 134/64; PULSE 79; RESP 17; TEMP 98.2; O2SAT 99
[2025-03-01 05:00] VITALS: BP 154/73; PULSE 89; RESP 17; TEMP 97.9; O2SAT 99
[2025-03-01 06:29] LABS: Hematocrit 36.8 % (36.0-46.0); Hemoglobin 12.9 g/dL (12.2-16.2); Mean Corpuscular Hemoglobin 30.1 pg (28.0-32.0); Mean Corpuscular Volume 86.1 fL (80.0-100.0); Nucleated Red Blood Cells % 0.0 %
[2025-03-01 06:36] LABS: Alanine Aminotransferase 15 U/L (7-40); Alkaline Phosphatase 85 U/L (46-116); Anion Gap 10 (5-15); BUN/Creatinine Ratio 8.1 (10.0-20.0); Blood Urea Nitrogen 13 mg/dL (9-23); Carbon Dioxide 23 mmol/L (20-31); Glucose 84 mg/dL (74-106); Potassium 3.8 mmol/L (3.5-5.1); Sodium 141 mmol/L (136-145); Total Protein 6.6 g/dL (5.7-8.2)
[2025-03-01 06:38] LABS: Albumin 3.3 g/dL (3.2-4.8)
[2025-03-01 06:39] LABS: Bilirubin, Total 0.3 mg/dL (0.2-1.0); Calcium 8.6 mg/dL (8.7-10.4); Chloride 108 mmol/L (98-107)
[2025-03-01 08:00] VITALS: PULSE 87; RESP 17; O2SAT 98
[2025-03-01 09:21] VITALS: BP 141/70; PULSE 87; RESP 17; TEMP 98.6; O2SAT 99
[2025-03-01] MEDS: ACETAMINOPHEN 325 MG TAB PO PRN (11:56)
[2025-03-01 13:00] VITALS: BP 130/69; PULSE 85; RESP 17; TEMP 98.4; O2SAT 98
--- NOTE | 2025-03-01 15:33 | DVHDSRES ---
Discharge Summary Date of Admission Resident Creating Document: AILIN VASQUEZ RESIDENT Feb 24, 2025 at 20:31 Date of Discharge: Mar 01, 2025 Labs/Diagnostic Data: Laboratory Results Test 03/01/25 05:31 03/01/25 05:02 02/28/25 04:55 02/26/25 04:45 POC Glucose 93 mg/dl (70-106) White Blood Count 6.9 10^3/uL (4.4-10.8) Red Blood Count 4.28 10^6/uL (4.0-5.20) Hemoglobin 12.9 g/dL (12.2-16.2) Hematocrit 36.8 % (36.0-46.0) Mean Corpuscular Volume 86.1 fL (80.0-100.0) Mean Corpuscular Hemoglobin 30.1 pg (28.0-32.0) Mean Corpuscular Hemoglobin Concent 35.0 g/dL (32.0-36.0) Red Cell Distribution Width 12.2 % (11.8-14.3) Platelet Count 367 10^3/uL (140-450) Mean Platelet Volume 8.4 fL (6.9-10.8) Neutrophils (%) (Auto) 51.8 % (37.0-80.0) Lymphocytes (%) (Auto) 38.7 % (10.0-50.0) Monocytes (%) (Auto) 5.6 % (0.0-12.0) Eosinophils (%) (Auto) 2.9 % (0.0-7.0) Basophils (%) (Auto) 1.0 % (0.0-2.0) Neutrophils # (Auto) 3.6 10 ^3/uL (1.6-8.6) Lymphocytes # (Auto) 2.7 10 ^3/uL (0.4-5.4) Monocytes # (Auto) 0.4 10 ^3/uL (0-1.3) Eosinophils # (Auto) 0.2 10 ^3/uL (0-0.8) Basophils # (Auto) 0.1 10 ^3/uL (0-0.2) Nucleated Red Blood Cells 0.0 % Sodium Level 141 mmol/L (136-145) Potassium Level 3.8 mmol/L (3.5-5.1) Chloride Level 108 mmol/L (98-107) Carbon Dioxide Level 23 mmol/L (20-31) Anion Gap 10 (5-15) Blood Urea Nitrogen 13 mg/dL (9-23) Creatinine 1.60 mg/dL (0.550-1.02) Glomerular Filtration Rate Calc 40 mL/min (>90) BUN/Creatinine Ratio 8.1 (10.0-20.0) Serum Glucose 84 mg/dL (74-106) Calcium Level 8.6 mg/dL (8.7-10.4) Total Bilirubin 0.3 mg/dL (0.2-1.0) Aspartate Amino Transferase (AST) 37 U/L (13-40) Alanine Aminotransferase (ALT) 15 U/L (7-40) Alkaline Phosphatase 85 U/L (46-116) Total Protein 6.6 g/dL (5.7-8.2) Albumin 3.3 g/dL (3.2-4.8) Random Vancomycin Level 9.9 ug/mL (5-10) B-Type Natriuretic Peptide 25.67 pg/mL (0-100) Test 02/25/25 08:45 02/25/25 07:24 02/24/25 21:20 02/24/25 13:58 Urine Color Light-yellow (Yellow) Urine Clarity Turbid (Clear) Urine pH 6.5 (5.0-9.0) Urine Specific [place] 1.021 (1.001-1.035) Urine Protein 3+ (Negative) Urine Ketones Negative (Negative) Urine Blood Trace /uL (Negative) Urine Nitrite Negative (Negative) Urine Bilirubin Negative (Negative) Urine Urobilinogen Normal mg/dL (Negative) Urine Leukocyte Esterase Negative /uL (Negative) Urine RBC 2 /hpf (0 - 4) Urine Microscopic WBC 19 /HPF (0-5) Urine Squamous Epithelial Cells Few /hpf (<5) Urine Bacteria None seen /hpf (None Seen) Urine Hyaline Casts Moderate /lpf (0 - 2) Urine Creatinine 115.11 mg/dL (30.0-125.0) Urine Glucose 3+ mg/dL (Normal) Urine Total Protein 1273.5 mg/dL (1-14) Urine Test Negative (Negative) Urine Opiates Screen Neg (NEGATIVE) Urine Fentanyl Screen Neg (NEGATIVE) Urine Barbiturates Screen Neg (NEGATIVE) Urine Phencyclidine Screen Neg (NEGATIVE) Urine Amphetamines Screen Neg (NEGATIVE) Urine Benzodiazepines Screen Neg (NEGATIVE) Urine Cocaine Screen Neg (NEGATIVE) Urine Cannabinoids Screen Neg (NEGATIVE) Hemoglobin A1c 8.6 % A1C (<5.7) Erythrocyte Sedimentation Rate 98 mm/hr (0-20) Magnesium Level 2.1 mg/dL (1.6-2.6) Direct Bilirubin < 0.1 mg/dL (<0.3) C-Reactive Protein High Sensitivity 2.04 mg/dL (<1.0) Troponin I High Sensitivity 7 ng/L (</=34) Test 02/24/25 11:45 Beta HCG, Quantitative 0.7 mIU/mL (1.5-4.2) Other Laboratory Tests 03/01/25 05:02 Brief Hx & Hospital Course: 49-year-old female with past medical history of hypertension, type 2 diabetes mellitus, glaucoma presented with complaints of swelling and burning the right side of the face. Patient reports that it has been 4 days since the area above the lips and bilateral cheeks began to swell, R>L side which began after she cleaned her refrigerator with vinegar. She also reported slight difficulty in swallowing which had been present for the last 1 month. She met her PCP who suggested to visit the emergency room. She also has a wound on the left heel with yellow-colored discharged. In the ED, BP was noted to be 230/115. Labs revealed elevated blood glucose and creatinine levels. Urinalysis revealed elevated urine total protein and glucose. Chest x-ray, CT sinuses, head CT and liver ultrasound did not reveal grave abnormalities. Foot CT revealed soft tissue swelling without osteomyelitis. Wound culture revealed Staphylococcus aureus and E coli, antibiotics were switched to oral and the patient discharged home. Condition at Discharge: Fair Final Diagnosis/Problems List #Diabetic left foot ulcer, stage II, POA #Type 2 diabetes mellitus, uncontrolled #diabetic nephropathy #Right facial swelling, likely sinusitis/allergic reaction #Hypertensive emergency #HENRI secondary to hypertension Discharge Disposition: Home Discharge Instruct/Medications Diet: Consistent carbohydrate Activity: No Restrictions, As Tolerated Follow Up/Referral: F/u with PCP in 7 days Medications: as per EHR Scheduled Cephalexin (Keflex Capsule), 1 CAP PO QID Metformin Hydrochloride (Metformin Hcl), 1 TAB PO BID Discontinued Medications Levofloxacin Hemihydrate (Levofloxacin), 1 TAB PO DAILY Discharge Statement: "Patient was advised to return to the ER or call 911 if any headaches, dizziness, shortness of breath, chest pain, abdominal pain, bleeding, fevers, or worsening of medical condition. Patient was counseled about treatment plan, medications, possible side effects, patientverbalized understanding. All questions were answered to the best of my ability. This discharge took greater then 30 minutes in planning, reviewing documentation, counseling the patient, and discussing with other team members." ASSESSMENT ASSESSMENT Assessment Infected wound ulcer Diabetic nephropathy Date of Service: Mar 01, 2025 Billing Provider: CHARITO BRAND MD Common Visit Codes: [id number]/OBS DISCH DAY >30min Date of Service: Mar 01, 2025 Billing Provider: CHARITO BRAND MD Common Visit Codes: [id number]/OBS DISCH DAY >30min AILIN VASQUEZ Mar 01, 2025 15:33 CHARITO BRAND MD Mar 03, 2025 10:09
[2025-03-01] MEDS ORDERED: CEPH250C PO (16:17)
== END 2025-03-01 16:00 | disposition home or self-care (01) | DRG 113 ==
LOC: ER 10:12 → OVERFLOW 20:31 → TELE-WESTW 02-25 18:49 → WEST WING 02-26 06:58
PROVIDERS: ADMIT Internal Medicine; ATTEND Internal Medicine
DX: J30.89 Other allergic rhinitis (principal); I16.1 Hypertensive emergency; N17.9 Acute kidney failure, unspecified; E11.21 Type 2 diabetes mellitus with diabetic nephropathy; I10 Essential (primary) hypertension; E11.621 Type 2 diabetes mellitus with foot ulcer; T75.89XA Other specified effects of external causes, initial encounter; X58.XXXA Exposure to other specified factors, initial encounter; L97.529 Non-pressure chronic ulcer of other part of left foot with unspecified severity; Y93.89 Activity, other specified; Y92.89 Other specified places as the place of occurrence of the external cause; Y99.8 Other external cause status; Z79.899 Other long term (current) drug therapy
CPT/HCPCS: 36415; 70450; 70486; 71045; 73700; 76705; 80048; 80053; 80076; 80202; 80307; 81001; 81025; 82565; 82570; 82962; 83036; 83735; 83880; 84156; 84484; 84702; 85025; 85652; 86141; 87077; 87081; 87186; 87205; 93005; 93306; 99291; G0378; J1815; J2543

== ENCOUNTER 2025-03-05 12:01 | Emergency (ER) | payer MEDICAID ==
[~2025-03-05] VITALS: Ht 157.5 cm; Wt 70.0 kg
[~2025-03-05 12:01] MED LIST changes: +CEPH250C PO; -LEVO500T91 PO
[2025-03-05 12:03] VITALS: BP 135/65; PULSE 105; RESP 16; TEMP 97.9; O2SAT 98
--- NOTE | 2025-03-05 15:39 | ED.PDOC ---
GI ASSESSMENT HPI Comments 49F presents to the ER in a wheelchair being pushed by daughter and w/ prior MHx of HTN, DM and the c/c of N/V. Daughter reports on the pt recently being d/c on 03/01 due from an infection to the left LE and was prescribed cephalexin 250mg once a day. The pt took her first dose of the medication last night and 30 min after the pt started to have symptoms of N/V associated w/ ABD pain. Denies any symptoms at this time. Patient denies any chest pain, SOB, dizziness, numbness, weakness, tingling, fever, chills, or recent fall. Chief Complaint: Nausea/Vomiting Time Seen by MD: 15:00 Primary Care Provider: MOJGAN Reviewed Notes: Nurses Notes, Medications, Allergies Allergies: Coded Allergies: NO KNOWN ALLERGIES (Unverified , 06/22/16) Home Meds Active Scripts Cephalexin (KEFLEX CAPSULE) 250 Mg Cp, 1 CAP PO QID, #40 CAP Prov:CHARITO BRAND MD 03/01/25 Metformin Hydrochloride (Metformin Hcl) 500 Mg Tab, 1 TAB PO BID, #60 TAB 0 Refills Prov:RACHAEL ADAMS MD 06/29/16 Discontinued Scripts Levofloxacin Hemihydrate (LEVOFLOXACIN) 500 Mg Tab, 1 TAB PO DAILY, #7 TAB Prov:RACHAEL ADAMS MD 06/29/16 Information Source: Patient, Relative (Child) Mode of Arrival: Wheelchair Timing: Hours Duration: Since onset, Hours Prehospital treatment: None Quality: Aching Vomitus: Bilious Stool: Normal Severity: Moderate Recent: None Recent Hx of: None Pain Location: Diffuse Associated sign and symptoms: Nausea, Vomiting, Abdominal Pain Past Medical History PAST MEDICAL HISTORY: DM, HTN Surgical History: Denies all surgeries ODD SHOE EXAMINER History: No Pertinent ODD SHOE EXAMINER History Family History Family History: Reviewed,noncontributory to illness, Unknown Social History Smoker: Non-Smoker Alcohol: Denies ETOH Use Drugs: Denies Drug Use Lives In: Home Constitutional: denies: chills, diaphoresis, fatigue, fever, malaise, sweats, weakness, others EENTM: denies: blurred vision, double vision, ear bleeding, ear discharge, ear drainage, ear pain, ear ringing, eye pain, eye redness, hearing loss, mouth pain, mouth swelling, nasal discharge, nose bleeding, nose congestion, nose pain, photophobia, tearing, throat pain, throat swelling, voice changes, others Respiratory: denies: cough, hemoptysis, orthopnea, SOB at rest, shortness of breath, SOB with excertion, stridor, wheezing, others Cardiovascular: denies: chest pain, dizzy spells, diaphoresis, Dyspnea on exertion, edema, irregular heart beat, left arm pain, lightheadedness, palpitations, PND, syncope, others Gastrointestinal: reports: abdominal pain, nausea, vomiting; denies: abdomen distended, blood streaked bowels, constipated, diarrhea, dysphagia, difficulty swallowing, hematemesis, melena, poor appetite, poor fluid intake, rectal bleeding, rectal pain, others Genitourinary: denies: abnormal vagina bleeding, burning, dyspareunia, dysuria, flank pain, frequency, hematuria, incontinence, pain, , vagina discharge, urgency, others Neurological: denies: dizziness, fainting, headache, left sided numbness, left sided weakness, numbness, paresthesia, pre-existing deficit, right sided numbness, right sided weakness, seizure, speech problems, tingling, tremors, weakness, others Musculoskeletal: denies: back pain, gout, joint pain, joint swelling, muscle pain, muscle stiffness, neck pain, others Integumetry: denies: bruises, change in color, change in hair/nails, dryness, laceration, lesions, lumps, rash, wounds, others Allergic/Immunocompromised: denies: Difficulty Healing, Frequent Infections, Hives, Itching, others Hematologic/Lymphatic: denies: anemia, blood clots, easy bleeding, easy bruising, swollen glands, others Endocrine: denies: excessive hunger, excessive sweating, excessive thirst, excessive urination, flushing, intolerance to cold, intolerance to heat, unexplained weight gain, unexplained weight loss, others Psychiatric: denies: anxiety, bipolar disorder, depression, hopeless, panic disorder, schizophrenia, sleepless, suicidal, others All Other Systems: Reviewed and Negative Physical Exam General Appearance: Mild Distress, Obese HEENT: Normal ENT Inspection, PERRL/EOMI, Pharynx Normal, TMs Normal Neck: Full Range of Motion, Non-Tender, Normal, Normal Inspection Respiratory: Chest Non-Tender, Lungs Clear, No Accessory Muscle Use, No Respiratory Distress, Normal Breath Sounds Cardiovascular: No Edema, No JVD, No Murmur, No Gallop, Normal Peripheral Pulses, Regular Rate/Rhythm Breast Exam: Deferred Gastrointestinal: Epigastric, No Organomegaly, No Pulsatile Mass, Normal Bowel Sounds, Soft, Tenderness Genitalia: Deferred Pelvic: Deferred Rectal: Deferred Extremities: No calf tenderness, Normal capillary refill, Normal inspection, Normal range of motion, Non-tender, No pedal edema Musculoskeletal : Apperance: Normal Neurologic: Alert, transit department clerk II-XII nml as Tested, No Motor Deficits, Normal Affect, Normal Mood, No Sensory Deficits Cerebellar Function: NOT DONE Reflexes: NOT DONE Skin: Dry, Normal Color, Warm Peripheral Pulses: 1+ carotid (R), 1+ carotid (L) Lymphatic: No Adenopathy Was a procedure done? Was a procedure done?: No GI differential Dx Differential Diagnosis: Gastritis/PUD, Dehydration, Electrolyte Imbalance, Food Poisoning, Anemia X-Ray, Labs, Meds, VS Vital Signs Date Time Temp Pulse Resp B/P (MAP) Pulse Ox O2 Delivery O2 Flow Rate FiO2 03/05/25 12:03 97.9 105 16 135/65 98 97.9 X-Ray, Labs, Meds, VS Comment Course in the emergency department eventful patient came in because of nausea vomiting and abdominal pain after she started taking Keflex patient blood pressure is 135/85 and a blood sugar is 180 the patient is diabetic blood sugar is 180 Patient had a foot infection on the left and was being treated with a the Keflex but she can not accepted we We started on clindamycin to see if patient will accept that Patient will be discharged home to follow up with her PCP Time of 1ST Reevaluation: 15:30 Reevaluation 1ST: Unchanged Time of 2ND Reevaluation: 16:35 Reevaluation 2ND: Improved Patient Education/Counseling: Diagnosis, Treatment, Prognosis Family Education/Counseling: Diagnosis, Treatment, Prognosis SEPSIS Sepsis Screen Date sepsis recognized/suspect: Mar 05, 2025 Time Sepsis recognized/suspect: 1205 Recent Procedure: No On Antibiotic Therapy: No Respiratory Rate >20: No Heart Rate >90: No Temp<36 C (96.8 F) or >38.3 C: No SBP <90 or MAP <65 mmHG: No New Acute Mental Status Change: No Is the patient on CPAP, BIPAP,: No Physician Orders Omeprazole-Sodium Bicarbonate (Omeprazol (03/06/25 10:00) Vital Signs Date Time Temp Pulse Resp B/P (MAP) Pulse Ox O2 Delivery O2 Flow Rate FiO2 03/05/25 12:03 97.9 105 16 135/65 98 97.9 Departure 1 Departure Time of Disposition: 16:36 Impression: Primary Impression: Adverse effects of medication Qualified Codes: T50.905A - Adverse effect of unspecified drugs, medicaments and biological substances, initial encounter Additional Impression: Uncontrolled diabetes mellitus Qualified Codes: E11.65 - Type 2 diabetes mellitus with hyperglycemia Disposition: HOME / SELF CARE / HOMELESS Condition: Fair Additional Instructions: Stop the Keflex at this time and start this new medication Push fluids and follow up with your PCP e-Prescriptions Aluminum Hydroxide-Mag Carb (Gaviscon Extra Strength) 1 Chw Chw 1 CHW PO TID for 10 Days, #30 TAB.CHEW Prov: CHUY PEDROZA MD 03/05/25 Pantoprazole Sodium Sesquihydr (Protonix) 40 Mg Tab 40 MG PO DAILY for 15 Days, #15 TAB Prov: CHUY PEDROZA MD 03/05/25 Discharged With: Self, Legal Guardian Critical Care Note Critical Care Time?: No Stability Stability form required: No Heart Score Heart Score: Heart Score Response (Comments) Value History N/A 0 EKG N/A 0 Age 45-64 1 Risk Factors 1 or 2 risk factors 1 Troponin N/A 0 Total 2 I personally scribed for CHUY PEDROZA MD ([email or web address]) on 03/05/25 at 15:39. Electronically submitted by Dirk Garza ([email or web address]). CHUY PEDROZA MD Mar 05, 2025 15:39
[2025-03-05] MEDS ORDERED: PANT40TA2 PO (16:40)
[2025-03-05] MEDS ORDERED: ALUMCHW6 PO (16:40)
[2025-03-05] MEDS: CLINDAMYCIN HCL 150 MG CAP PO ONE (18:22)
[2025-03-05] MEDS: ONDANSETRON ODT 4 MG TAB PO ONE (18:23)
[2025-03-06] MEDS ORDERED: OMEPRAZOLE-SOD BICARB 20 MG POWDER PO SCH (10:00)
== END 2025-03-05 17:40 | disposition home or self-care (01) ==
LOC: ER 12:01
DX: E11.65 Type 2 diabetes mellitus with hyperglycemia (principal); T50.905A Adverse effect of unspecified drugs, medicaments and biological substances, initial encounter; I10 Essential (primary) hypertension; Z79.899 Other long term (current) drug therapy; Z79.84 Long term (current) use of oral hypoglycemic drugs; Y92.89 Other specified places as the place of occurrence of the external cause
CPT/HCPCS: Q0162